=== PATIENT | female | born 1955 | race Caucasian/White ===

== ENCOUNTER 2017-01-29 18:33 | Emergency (ER) | payer OTHER ==
[2017-01-29 18:41] VITALS: BP 125/83; PULSE 81; RESP 20; TEMP 98
--- NOTE | 2017-01-29 19:39 | CT ---
EXAMINATION TYPE: CT brain alconine wo con DATE OF EXAM: 01/29/2017 COMPARISON: Head CT 11/06/2011 HISTORY: Fall with posterior head injury. Neck pain CT DLP: 1598.40 mGycm Automated exposure control for dose reduction was used. TECHNIQUE: CT scan of the head and cervical spine are performed without contrast. FINDINGS: Ventricles and sulci appear normal. There is no mass effect nor midline shift. There is n o sign of intracranial hemorrhage. The calvarium is intact. There is minimal mucosal thickening in th e ethmoid sinus. The cervical vertebra have fairly normal spacing and alignment. Posterior elements are intact. Facet joints are intact. The skull base is intact. IMPRESSION: Negative CT scan of the brain. Negative CT scan of the cervical spine.
--- NOTE | 2017-01-29 19:41 | ED ---
General Adult HPI - General Chief complaint: Fall Stated complaint: head injury, back pain, tailbone Time Seen by Provider: 01/29/17 18:47 Source: patient, RN notes reviewed Mode of arrival: ambulatory Limitations: no limitations - History of Present Illness Initial comments: 62-year-old female presents to the emergency department with a chief complaint of fall. Patient was at work and she stepped backwards and lost her balance. Patient states she fell backwards on her back and hit her head on the wheelchair. Patient states she did not pass out. Patient states that she just has some tailbone pain. Patient states she does not have a headache she denies any neck discomfort. Patient states she hasn't had any other symptoms at this time. She denies any nausea. Patient states that she was concerned due to her pain and fall so she thought that she should be evaluated. Patient denies any recent fever, chills, shortness of breath, chest pain, abdominal pain, nausea vomiting, numbness or tingling, dysuria or hematuria, constipation or diarrhea, headaches or visual changes, or any other current symptoms. - Related Data Home Medications Medication Instructions Recorded Confirmed Ergocalciferol [Vitamin D2 50,000 unit PO Q7D 11/12/14 03/17/16 (DRISDOL)] Levothyroxine Sodium [Synthroid] 112 mcg PO DAILY 11/12/14 03/17/16 busPIRone HCl [Buspar] 10 mg PO DAILY 11/12/14 03/17/16 Zolpidem [Ambien] 5 mg PO HS PRN 12/11/14 03/17/16 ALPRAZolam [Xanax] 0.25 mg PO BID PRN 03/13/16 03/17/16 Aspirin 81 mg PO DAILY 03/13/16 03/17/16 Ferrous Sulfate [Iron (65 MG 325 mg PO DAILY 03/13/16 03/17/16 Elemental)] Metoprolol Tartrate 25 mg PO HS 03/13/16 03/17/16 Metoprolol Tartrate [Lopressor] 50 mg PO DAILY 03/13/16 03/17/16 Previous Rx's Medication Instructions Recorded Atorvastatin [Lipitor] 80 mg PO HS #30 tab 11/15/14 Clopidogrel [Plavix] 75 mg PO DAILY #30 tab 11/15/14 Losartan [Cozaar] 50 mg PO DAILY #30 tab 12/20/14 Aspirin 325 mg PO DAILY 30 Days 03/18/16 Mag Hydrox/Al Hydrox/Simeth 30 ml PO Q4HR PRN #0 cup 03/18/16 [Maalox] Nitroglycerin Sl Tabs [Nitrostat] 0.4 mg SUBLINGUAL Q5M PRN #25 tab 03/18/16 Allergies Allergy/AdvReac Type Severity Reaction Status Date / Time No Known Allergies Allergy Verified 01/29/17 18:40 Review of Systems ROS Statement: Those systems with pertinent positive or pertinent negative responses have been documented in the HPI. ROS Other: All systems not noted in ROS Statement are negative. Past Medical History Past Medical History: Chest Pain / Angina, Fibromyalgia, GERD/Reflux, Hyperlipidemia, Hypertension, Myocardial Infarction (LA), Rheumatoid Arthritis ( RA), Thyroid Disorder Additional Past Medical History / Comment(s): 12/19/14 Pt admitted to floor s/p stenting of LAD and diagnal. 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 guillian barre syndrome, hypothryroidism, gastric ulcer Last Myocardial Infarction Date:: 11/12/14 History of Any Multi-Drug Resistant Organisms: MRSA Date of last positivie culture/infection: 2008 or 2009 MDRO Source:: R ankle wound Past Surgical History: Breast Surgery, Cholecystectomy, Heart Catheterization With Stent, Hysterectomy, Orthopedic Surgery Additional Past Surgical History / Comment(s): 12/19/14 Stenting of LAD and diagonal. 11/12/14 PTCA with stenting RCA and CX, bilateral hips broken and set to treat congenital hip dysplasia bilaterally, sinus surg, R medial ankle wound debridement, L breast bx, colonoscopy, D & C. Past Anesthesia/Blood Transfusion Reactions: No Reported Reaction Additional Past Anesthesia/Blood Transfusion Reaction / Comment(s): Pt has never recieved blood. Date of Last Stent Placement:: 11/12/14 Past Psychological History: Anxiety, Depression Smoking Status: Light tobacco smoker Past Alcohol Use History: None Reported Past Drug Use History: None Reported - Past Family History Brother(s) Additional Family Medical History / Comment(s): CMP, HAS AICD. Father Family Medical History: Cancer Additional Family Medical History / Comment(s): Father of colon cancer at age 77 years Mother Family Medical History: Coronary Artery Disease (CAD) Additional Family Medical History / Comment(s): Mother is living. General Exam - General Exam Comments Initial Comments: General: The patient is awake and alert, in no distress, and does not appear acutely ill. Eye: Pupils are equal, round and reactive to light, extra-ocular movements are intact; there is normal conjunctiva bilaterally. No signs of icterus. Ears, nose, mouth and throat: There are moist mucous membranes and no oral lesions. Neck: The neck is supple, there is no tenderness. Cardiovascular: There is a regular rate and rhythm. No murmur, rub or gallop is appreciated. Respiratory: Lungs are clear to auscultation, respirations are non-labored, breath sounds are equal. No wheezes, stridor, rales, or rhonchi. Back: There is no tenderness to palpation in the midline. Tenderness over the taxi to palpation. There is no obvious deformity. No rashes noted. Musculoskeletal: Normal ROM, no tenderness, There is no pedal edema. There is no calf tenderness or swelling. Sensation intact. Pulses equal bilaterally 2+. Neurological: CN II-XII intact, There are no obvious motor or sensory deficits. Coordination appears grossly intact. Speech is normal. Skin: Skin is warm and dry and no rashes or lesions are noted. Psychiatric: Cooperative, appropriate mood & affect, normal judgment. Limitations: no limitations Course Vital Signs 01/29/17 18:37 Temperature 98.0 F Pulse Rate 81 Respiratory 20 Rate Blood Pressure 125/83 O2 Sat by Pulse 96 Oximetry Medical Decision Making - Medical Decision Making 62-year-old female presents to the emergency department with chief complaint of fall. At this time patient's images are reviewed and negative. This time we discussed patient's results. We discussed follow-up we discussed return parameters all the questions. She stated that she understood and she is given the plan. At this time patient will be discharged home. - Radiology Data Radiology results: report reviewed, image reviewed Disposition Clinical Impression: Fall, Minor head injury without loss of consciousness, Coccyx contusion Disposition: HOME SELF-CARE Condition: Stable Instructions: Contusion in Adults (ED), Head Injury (ED) Additional Instructions: Please use medication as discussed. Please follow up with family doctor if symptoms have not improved over the next two days. Please return to the emergency room if your symptoms increase or worsen or for any other concerns. Referrals: Sherron Osman DO [Primary Care Provider] - 1-2 days Time of Disposition: 19:50
--- NOTE | 2017-01-29 19:44 | XR ---
EXAMINATION TYPE: XR lumbar spine 2 or 3V DATE OF EXAM: 01/29/2017 COMPARISON: NONE HISTORY: Fell backwards TECHNIQUE: 3 views FINDINGS: There is a 5 mm calcification in the lower pole right kidney. Vertebra have normal alignmen t. Posterior elements are intact. I see no compression fracture. There is mild spurring of the endpla kat. Sacroiliac joints appear intact. IMPRESSION: Negative lumbar spine exam. Mild spurring. Right renal calculus. No fracture.
--- NOTE | 2017-01-29 19:46 | XR ---
EXAMINATION TYPE: XR sacrum coccyx DATE OF EXAM: 01/29/2017 COMPARISON: NONE HISTORY: Back pain TECHNIQUE: 3 views FINDINGS: Segments have normal alignment. I see no displaced fracture. Sacroiliac joints appear intac t. IMPRESSION: Negative sacrum and coccyx exam.
== END 2017-01-29 20:00 | disposition home or self-care (01) ==
LOC: EC 18:33
DX: S30.0XXA Contusion of lower back and pelvis, initial encounter (principal); S09.90XA Unspecified injury of head, initial encounter; I10 Essential (primary) hypertension; E03.9 Hypothyroidism, unspecified; F41.9 Anxiety disorder, unspecified; M06.9 Rheumatoid arthritis, unspecified; I25.2 Old myocardial infarction; F17.200 Nicotine dependence, unspecified, uncomplicated; Z79.82 Long term (current) use of aspirin; Z79.899 Other long term (current) drug therapy; Z86.79 Personal history of other diseases of the circulatory system; W01.190A Fall on same level from slipping, tripping and stumbling with subsequent striking against furniture, initial encounter; Y92.69 Other specified industrial and construction area as the place of occurrence of the external cause; Y93.89 Activity, other specified; Y99.0 Civilian activity done for income or pay
CPT/HCPCS: 70450; 72100; 72125; 72220; 99284

== ENCOUNTER → 2017-02-02 | Outpatient (CLI) | payer OTHER ==
--- NOTE | 2017-02-02 16:35 | XR ---
EXAMINATION TYPE: XR thoracic spine complete DATE OF EXAM: 02/02/2017 COMPARISON: NONE HISTORY: Contusion lower back TECHNIQUE: Three-view thoracic spine FINDINGS: There are 12 thoracic type vertebral bodies. The pedicles are intact. Disc heights are pres erved. Vertebral body heights are preserved. Alignment is normal. IMPRESSION: 1. Normal three-view thoracic spine
--- NOTE | 2017-02-02 16:52 | CT ---
EXAMINATION TYPE: CT sacrum wo con DATE OF EXAM: 02/02/2017 COMPARISON: NONE HISTORY: Contusion lower back and pelvis CT DLP: 852.2 mGycm Automated exposure control for dose reduction was used. FINDINGS: Within the subcutaneous tissues greater on the right there is increased density. This can be compatib le with contusion from injury. Sacrum appears intact. No fractures are evident. Sacroiliac joint degenerative changes are present. S ymphysis visualized appears within normal limits. Additional osseous structures visualized are normal. Note is made of diverticular changes within the sigmoid colon. The appendix is visualized is normal. IMPRESSION: 1. NORMAL SACRUM. 2. SUBCUTANEOUS ECCHYMOSIS ALONG THE RIGHT BUTTOCKS
== END | disposition home or self-care (01) ==
LOC: RADCTMAIN 16:13
PROVIDERS: ATTEND Emergency Medicine
DX: S30.0XXA Contusion of lower back and pelvis, initial encounter (principal)
CPT/HCPCS: 72072; 72192

== ENCOUNTER → 2017-02-10 | Outpatient (CLI) | payer OTHER ==
--- NOTE | 2017-02-11 10:42 | MM ---
Reason for exam: screening (asymptomatic). Last mammogram was performed 1 year and 5 months ago. History: Patient is postmenopausal and is nulliparous. Benign stereotactic core biopsy of the left breast, August 18, 2001. Physical Findings: A clinical breast exam by your physician is recommended on an annual basis and results should be correlated with mammographic findings. MG Screening Mammo w CAD Bilateral CC and MLO view(s) were taken. Prior study comparison: September 14, 2015, bilateral MG 3d screening mammo w/cad. August 28, 2010, bilateral digital screening mammo w/CAD. There are scattered fibroglandular densities. Previous mammotome biopsy in the left breast. No significant changes when compared with prior studies. ASSESSMENT: Benign, BI-RAD 2 RECOMMENDATION: Routine screening mammogram of both breasts in 1 year.
== END | disposition home or self-care (01) ==
LOC: RADMAMWWP 16:24
PROVIDERS: ATTEND Family Medicine
DX: Z12.31 Encounter for screening mammogram for malignant neoplasm of breast (principal)

== ENCOUNTER → 2018-03-28 | Outpatient (CLI) | payer BC ==
--- NOTE | 2018-03-28 19:09 | BD ---
EXAMINATION TYPE: Axial Bone Density DATE OF EXAM: 03/28/2018 COMPARISON: NONE CLINICAL HISTORY: 63-year-old female postmenopausal screening Height: 62 Weight: 192.8 FRAX RISK QUESTIONS: Alcohol (3 or more units per day): no Family History (Parent hip fracture): yes Glucocorticoids (More than 3mos): no (Ex: prednisone, prednisolone, methylprednisolone, dexamethasone, and hydrocortisone). History of Fracture in Adulthood: no Secondary Osteoporosis: 1. Type 1 Diabetes: no 2. Hyperthyroidism: no 3. Menopause before 45: hysterectomy age 36 4. Malnutrition: no 5. Chronic liver disease: no Rheumatoid Arthritis: yes Current Tobacco Use: no RISK FACTORS HISTORY OF: Surgery to Spine/Hip(right/left)/Wrist (right/left): bilateral hips 1982 Family History of Osteoporosis: yes Active: yes Diet low in dairy products/other sources of calcium: yes Postmenopausal woman: hysterectomy age 36 Lost more than 2 inches in height since high school: no MEDICATIONS: arthritis meds, gabapentin, flexeril Thyroid Medications: thyroid How Lon years Additional History: EXAM MEASUREMENTS: Bone mineral densitometry was performed using the [employer] System. Bone mineral density as measured about the Lumbar spine is: ----- L1-L4(G/cm2): 0.970 T Score Values are as follows: ----- L2: -1.4 ----- L3: -1.3 ----- L4: -2.3 ----- L1-L4: -1.8 Bone mineral density has: increased 12.2 % since study of: 05.08.2005 Bone mineral density about the L Wrist (g/cm2): 0.596 T Score values are as follows: -----Dist. R+U: -0.3 -----Prox. R+U: -1.4 -----Radius total: -1.3 Bone mineral density : baseline IMPRESSION: Osteopenia (T Score between -2.5 and -1). There is slightly increased risk of fracture and the patient may be considered for treatment. Re-Screen 2-5 years. NOTE: T-SCORE=SD OF THE YOUNG ADULT MEAN.
--- NOTE | 2018-03-29 11:21 | MM ---
Reason for exam: screening (asymptomatic). Last mammogram was performed 1 year and 2 months ago. History: Patient is postmenopausal and is nulliparous. Benign stereotactic core biopsy of the left breast, August 18, 2001. Physical Findings: A clinical breast exam by your physician is recommended on an annual basis and results should be correlated with mammographic findings. MG 3D Screening Mammo W/Cad Bilateral CC and MLO view(s) were taken. Prior study comparison: February 10, 2017, bilateral MG screening mammo w CAD. September 14, 2015, bilateral MG 3d screening mammo w/cad. There are scattered fibroglandular densities. No significant changes when compared with prior studies. ASSESSMENT: Benign, BI-RAD 2 RECOMMENDATION: Routine screening mammogram of both breasts in 1 year.
== END | disposition home or self-care (01) ==
LOC: RADMAMWWP 14:22
PROVIDERS: ATTEND Family Medicine
DX: Z12.31 Encounter for screening mammogram for malignant neoplasm of breast (principal); M85.80 Other specified disorders of bone density and structure, unspecified site; Z78.0 Asymptomatic menopausal state
CPT/HCPCS: 77063; 77067; 77080

== ENCOUNTER → 2018-04-07 | Outpatient (CLI) | payer BC ==
[2018-04-07 09:08] LABS: HCT 38.5 % (34.0-46.0); HGB 12.8 gm/dL (11.4-16.0); MCH 34.4 pg (25.0-35.0); MCHC 33.3 g/dL (31.0-37.0); MCV 103.2 fL (80.0-100.0); Macrocytosis Slight; Mean Platelet Volume 6.5; Platelet Count 364 k/uL (150-450); RBC 3.73 m/uL (3.80-5.40); RDW 14.1 % (11.5-15.5); WBC 7.5 k/uL (3.8-10.6)
[2018-04-07 15:47] LABS: Anion Gap 9.5 mmol/L (4.00-12.00); Calcium 9.3 mg/dL (8.7-10.3); Carbon Dioxide 23.5 mmol/L (21.6-31.8); Potassium 4.3 mmol/L (3.5-5.5)
== END ==
LOC: LABWHC1 08:35
PROVIDERS: ATTEND Internal Medicine Interventional Cardiology
DX: I10 Essential (primary) hypertension (principal); I25.10 Atherosclerotic heart disease of native coronary artery without angina pectoris
CPT/HCPCS: 36415; 80048; 85027

== ENCOUNTER → 2019-03-15 | Outpatient (CLI) | payer BC ==
--- NOTE | 2019-03-16 00:14 | MR ---
EXAMINATION TYPE: MR wrist LT wo con DATE OF EXAM: 03/15/2019 COMPARISON: None HISTORY: Left wrist pain, effusion Standard multiplanar, multisequence MRI departmental protocol Multiplanar, multisequence images of the left wrist were acquired. FINDINGS: On the T2 images there is multiple areas of abnormal increased signal involving the scaphoi d bone, capitate hamate distal radius trapezoid. There are small areas of increased signal in the tra pezium and the triquetrum. There is some cystic fluid collection around the ulnar styloid process. Th ere is wrist joint effusion. There is significant scaphoid deformity consistent with an old fracture. There is narrowing of the radiocarpal joint space. I see no acute fracture. Proximal metacarpals nazia ear intact. There are small areas of degenerative cyst formation in the base of the second metacarpal . There is soft tissue edema around the flexor tendons and in the subcutaneous tissues over the anter ior carpus. IMPRESSION: Wrist joint effusion. Abnormal signal in numerous bones as described above consistent with edema. The re is evidence of old fracture of the scaphoid with significant deformity. There is no significant sp ur formation and I would also consider the presence of inflammatory arthritis. Mild anterior soft tis filipe edema.
== END | disposition home or self-care (01) ==
LOC: RADMRIMAIN 18:39
PROVIDERS: ATTEND Internal Medicine Rheumatology
DX: M25.432 Effusion, left wrist (principal); S62.002S Unspecified fracture of navicular [scaphoid] bone of left wrist, sequela; M21.832 Other specified acquired deformities of left forearm; M79.89 Other specified soft tissue disorders

== ENCOUNTER → 2023-04-05 | Day surgery (SDC) | payer OTHER ==
--- NOTE | 2023-04-08 08:00 | MM ---
Risk Values: Kay 5 year model risk: 2.4%. NCI Lifetime model risk: 8.6%. Management: Screening Mammogram of both breasts in 1 year. Electronically signed and approved by: Cr Avila DO
== END ==
LOC: RADMAMWWP 07:16
PROVIDERS: ATTEND Family Medicine
DX: Z53.8 Procedure and treatment not carried out for other reasons (principal)

== ENCOUNTER 2023-12-27 12:31 | Emergency (ER) | payer BC, MEDICARE ==
--- NOTE | 2023-12-27 12:55 | ED ---
General Adult HPI - General Chief complaint: Fall Stated complaint: Fall Time Seen by Provider: 12/27/23 12:36 Source: patient, EMS, RN notes reviewed Mode of arrival: EMS Limitations: no limitations - History of Present Illness Initial comments: Patient is a 68-year-old female present to the emergency department for head injury. Patient slipped and fell around 2 AM. Patient struck her head on the counter and believes she may have lost consciousness for just a second. Patient however felt generally weak and was not unable to get up. Patient was lying on the ground for up to 10 hours. Patient has chronic weakness secondary to lupus. Patient feels this is similar to that and no worse. No other injuries other than striking her head. - Related Data Home Medications Medication Instructions Recorded Confirmed Atorvastatin Calcium [Lipitor] 80 mg PO HS 01/29/17 12/27/23 Clopidogrel [Plavix] 75 mg PO DAILY 01/29/17 12/27/23 Cyclobenzaprine [Flexeril] 10 mg PO HS 01/29/17 12/27/23 Furosemide [Lasix] 20 mg PO DAILY 01/29/17 12/27/23 Gabapentin [Neurontin] 300 mg PO HS 01/29/17 12/27/23 HYDROcodone/APAP 7.5-325MG [[place] 1 tab PO HS 01/29/17 12/27/23 7.5-325] Metoprolol Tartrate [Lopressor] 50 mg PO HS 01/29/17 12/27/23 Ibuprofen [Motrin] 800 mg PO Q12H PRN 12/27/23 12/27/23 Irbesartan 75 mg PO DAILY 12/27/23 12/27/23 Levothyroxine Sodium [Synthroid] 150 mcg PO DAILY 12/27/23 12/27/23 Metoprolol Tartrate [Lopressor] 100 mg PO DAILY 12/27/23 12/27/23 Omeprazole 20 mg PO BID 12/27/23 12/27/23 Allergies Allergy/AdvReac Type Severity Reaction Status Date / Time No Known Allergies Allergy Verified 12/27/23 13:53 Review of Systems ROS Statement: Those systems with pertinent positive or pertinent negative responses have been documented in the HPI. ROS Other: All systems not noted in ROS Statement are negative. Constitutional: Denies: fever Eyes: Denies: eye pain ENT: Denies: ear pain Respiratory: Denies: cough, dyspnea Cardiovascular: Denies: chest pain Gastrointestinal: Denies: abdominal pain Genitourinary: Denies: dysuria Musculoskeletal: Denies: back pain Skin: Denies: rash Neurological: Reports: as per HPI Past Medical History Past Medical History: Chest Pain / Angina, Fibromyalgia, GERD/Reflux, Hyperlipidemia, Hypertension, Myocardial Infarction (ND), Rheumatoid Arthritis (RA), Thyroid Disorder Additional Past Medical History / Comment(s): 12/19/14 Pt admitted to floor s/p stenting of LAD and diagnal. 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 guillian barre syndrome, hypothryroidism, gastric ulcer Last Myocardial Infarction Date:: 11/12/14 History of Any Multi-Drug Resistant Organisms: MRSA Date of last positivie culture/infection: 2008 or 2009 MDRO Source:: R ankle wound Past Surgical History: Breast Surgery, Cholecystectomy, Heart Catheterization With Stent, Hysterectomy, Orthopedic Surgery Additional Past Surgical History / Comment(s): 12/19/14 Stenting of LAD and diagonal. 11/12/14 PTCA with stenting RCA and CX, bilateral hips broken and set to treat congenital hip dysplasia bilaterally, sinus surg, R medial ankle wound debridement, L breast bx, colonoscopy, D & C. Past Anesthesia/Blood Transfusion Reactions: No Reported Reaction Additional Past Anesthesia/Blood Transfusion Reaction / Comment(s): Pt has never recieved blood. Date of Last Stent Placement:: 11/12/14 Past Psychological History: Anxiety, Depression Smoking Status: Current some day smoker Past Alcohol Use History: None Reported Past Drug Use History: None Reported - Past Family History Brother(s) Additional Family Medical History / Comment(s): CMP, HAS AICD. Father Family Medical History: Cancer Additional Family Medical History / Comment(s): Father of colon cancer at age 77 years Mother Family Medical History: Coronary Artery Disease (CAD) Additional Family Medical History / Comment(s): Mother is living. General Exam Limitations: no limitations General appearance: alert, in no apparent distress Head exam: Present: atraumatic Eye exam: Present: normal appearance, PERRL, EOMI ENT exam: Present: normal oropharynx Neck exam: Present: normal inspection, full ROM. Absent: tenderness, meningismus Respiratory exam: Present: normal lung sounds bilaterally Cardiovascular Exam: Present: regular rate, normal rhythm GI/Abdominal exam: Present: soft. Absent: tenderness Extremities exam: Present: normal inspection, full ROM. Absent: tenderness Back exam: Absent: tenderness, vertebral tenderness Neurological exam: Present: alert, oriented X3, CN II-XII intact Expanded Neurological exam: Present: protecting the airway Patient oriented to: Present: person, place, time Speech: Present: fluid speech Cranial nerves: EOM's Intact: Normal Motor strength exam: RUE: 5, LUE: 5, RLE: 4, LLE: 4 Eye Response: (4) open spontaneously Motor Response: (6) obeys commands Verbal Response: (5) oriented Psychiatric exam: Present: normal affect, normal mood Skin exam: Present: abrasion Course Vital Signs 12/27/23 12/27/23 12/27/23 12:42 13:30 14:00 Temperature 97.1 F L Pulse Rate 75 77 76 Respiratory 18 20 18 Rate Blood Pressure 145/99 138/94 142/100 O2 Sat by Pulse 98 98 97 Oximetry EKG Findings - EKG Results: EKG: interpreted by ERMD (Small inferior and lateral Q waves.), sinus rhythm, normal axis, normal ST/T Medical Decision Making - Medical Decision Making Was pt. sent in by a medical professional or institution (LILIAN Corona, CONTROL CLERK SUBASSEMBLY, urgent ca re, hospital, or [facility]...) When possible be specific @ -No Did you speak to anyone other than the patient for history (EMS, parent, family, police, friend...)? What history was obtained from this source @ -EMS provides history of transportation Did you review nursing and triage notes (agree or disagree)? Why? @ -I reviewed and agree with nursing and triage notes Were old charts reviewed (outside hosp., previous admission, EMS record, old EKG, old radiological studies, urgent care reports/EKG's, [facility] records)? Report findings @ -No old charts were reviewed Differential Diagnosis (chest pain, altered mental status, abdominal pain women, abdominal pain men, vaginal bleeding, weakness, fever, dyspnea, syncope, headache, dizziness, GI bleed, back pain, seizure, CVA, palpatations, mental health, musculoskeletal)? @ -Differential Weakness: Hypoglycemia, shock, sepsis, hyponatremia, anemia, infection, ND, ETOH, adverse medicine reaction, overdose, stroke, this is not meant to be an all-inclusive list. EKG interpreted by me (3pts min.). @ -As above X-rays interpreted by me (1pt min.). @ -Chest x-ray shows no acute process CT interpreted by me (1pt min.). @ -CT scan of the brain does not reveal any acute process U/S interpreted by me (1pt. min.). @ -None done What testing was considered but not performed or refused? (CT, X-rays, U/S, labs)? Why? @ -None What meds were considered but not given or refused? Why? @ -None Did you discuss the management of the patient with other professionals (professionals i.e. , PA, CONTROL CLERK SUBASSEMBLY, lab, RT, psych nurse, long term care social worker, glazing department supervisor, teacher, fire information officer, leather case finisher)? Give summary @ -No Was smoking cessation discussed for >3mins.? @ -No Was critical care preformed (if so, how long)? @ -No Were there social determinants of health that impacted care today? How? (Homelessness, low income, unemployed, alcoholism, drug addiction, transportation, low edu. Level, literacy, decrease access to med. care, fci, rehab)? @ -No Was there de-escalation of care discussed even if they declined (Discuss DNR or withdrawal of care, Hospice)? DNR status @ -No What co-morbidities impacted this encounter? (DM, HTN, Smoking, COPD, CAD, Cancer, CVA, ARF, Chemo, Hep., AIDS, mental health diagnosis, sleep apnea, morbid obesity)? @ -None Was patient admitted / discharged? Hospital course, mention meds given and route, prescriptions, significant lab abnormalities, going to OR and other pertinent info. @ -Patient presents with chronic weakness, patient denies any new weakness. Patient does have mild elevation of CPK as well as lactic acid. Patient receiving fluid bolus. Patient will be discharged and advised close follow-up for repeat testing, patient does demonstrate understanding and agrees to this. Patient will be discharged. Nursing staff to ambulate patient prior to discharge. Undiagnosed new problem with uncertain prognosis? @ -No Drug Therapy requiring intensive monitoring for toxicity (Heparin, Nitro, Insulin, Cardizem)? @ -No Were any procedures done? @ -No Diagnosis/symptom? @ -Head injury, fall, hypokalemia Acute, or Chronic, or Acute on Chronic? @ -Acute, acute, acute Uncomplicated (without systemic symptoms) or Complicated (systemic symptoms)? @ -Default Side effects of treatment? @ -No Exacerbation, Progression, or Severe Exacerbation? @ -No Poses a threat to life or bodily function? How? (Chest pain, USA, ND, pneumonia, PE, COPD, DKA, ARF, appy, cholecystitis, CVA, Diverticulitis, Homicidal, Suicidal, threat to staff... and all critical care pts) @ -No - Lab Data Result diagrams: 12/27/23 13:09 12/27/23 13:09 Lab Results 12/27/23 12/27/23 12/27/23 Range/Units 13:09 13:09 13:09 WBC 7.4 (3.8-10.6) k/uL RBC 3.56 L (3.80-5.40) m/uL Hgb 12.3 (11.4-16.0) gm/dL Hct 36.6 (34.0-46.0) % MCV 102.9 H (80.0-100.0) fL MCH 34.5 (25.0-35.0) pg MCHC 33.5 (31.0-37.0) g/dL RDW 14.9 (11.5-15.5) % Plt Count 277 (150-450) k/uL MPV 7.3 Neutrophils % 73 % Lymphocytes % 14 % Monocytes % 6 % Eosinophils % 5 % Basophils % 1 % Neutrophils # 5.4 (1.3-7.7) k/uL Lymphocytes # 1.0 (1.0-4.8) k/uL Monocytes # 0.4 (0-1.0) k/uL Eosinophils # 0.4 (0-0.7) k/uL Basophils # 0.1 (0-0.2) k/uL Macrocytosis Slight PT 9.6 L (10.0-12.5) sec INR 0.8 (<1.2) APTT 22.2 (22.0-30.0) sec Sodium 137 (137-145) mmol/L Potassium 3.1 L (3.5-5.1) mmol/L Chloride 104 (98-107) mmol/L Carbon Dioxide 26 (22-30) mmol/L Anion Gap 7 mmol/L BUN 9 (7-17) mg/dL Creatinine 0.54 (0.52-1.04) mg/dL Est GFR (CKD-EPI)AfAm >90 (>60 ml/min/1.73 sqM) Est GFR (CKD-EPI)NonAf >90 (>60 ml/min/1.73 sqM) Glucose 91 (74-99) mg/dL Plasma Lactic Acid Kvgn (0.7-2.0) mmol/L Calcium 9.3 (8.4-10.2) mg/dL Magnesium 1.9 (1.6-2.3) mg/dL Total Bilirubin 0.8 (0.2-1.3) mg/dL AST 183 H (14-36) U/L ALT 32 (4-34) U/L Alkaline Phosphatase 73 (38-126) U/L Creatine Kinase 889 H (30-135) U/L Total Protein 6.2 L (6.3-8.2) g/dL Albumin 3.8 (3.5-5.0) g/dL 12/27/23 Range/Units 13:09 WBC (3.8-10.6) k/uL RBC (3.80-5.40) m/uL Hgb (11.4-16.0) gm/dL Hct (34.0-46.0) % MCV (80.0-100.0) fL MCH (25.0-35.0) pg MCHC (31.0-37.0) g/dL RDW (11.5-15.5) % Plt Count (150-450) k/uL MPV Neutrophils % % Lymphocytes % % Monocytes % % Eosinophils % % Basophils % % Neutrophils # (1.3-7.7) k/uL Lymphocytes # (1.0-4.8) k/uL Monocytes # (0-1.0) k/uL Eosinophils # (0-0.7) k/uL Basophils # (0-0.2) k/uL Macrocytosis PT (10.0-12.5) sec INR (<1.2) APTT (22.0-30.0) sec Sodium (137-145) mmol/L Potassium (3.5-5.1) mmol/L Chloride (98-107) mmol/L Carbon Dioxide (22-30) mmol/L Anion Gap mmol/L BUN (7-17) mg/dL Creatinine (0.52-1.04) mg/dL Est GFR (CKD-EPI)AfAm (>60 ml/min/1.73 sqM) Est GFR (CKD-EPI)NonAf (>60 ml/min/1.73 sqM) Glucose (74-99) mg/dL Plasma Lactic Acid Kvng 3.7 H* (0.7-2.0) mmol/L Calcium (8.4-10.2) mg/dL Magnesium (1.6-2.3) mg/dL Total Bilirubin (0.2-1.3) mg/dL AST (14-36) U/L ALT (4-34) U/L Alkaline Phosphatase (38-126) U/L Creatine Kinase (30-135) U/L Total Protein (6.3-8.2) g/dL Albumin (3.5-5.0) g/dL Disposition Clinical Impression: Fall Disposition: HOME SELF-CARE Condition: Stable Instructions (If sedation given, give patient instructions): Fall Prevention (ED), Head Injury (ED) Additional Instructions: Please do follow-up with your primary care physician in the next 1 or 2 days for recheck. Please have your primary care physician recheck potassium, kidney function, CPK and lactic acid. Return for weakness, difficulty walking, confusion, worsening symptoms or any other concerns Is patient prescribed a controlled substance at d/c from ED?: No Referrals: Sherron Osman DO [Primary Care Provider] - 1-2 days Time of Disposition: 14:30
--- NOTE | 2023-12-27 13:32 | CT ---
EXAMINATION TYPE: CT brain wo con DATE OF EXAM: 12/27/2023 COMPARISON: 01/29/2017 HISTORY: weakness CT DLP: 1138.[address] of the brain was performed. The ventricles, basal cisterns and sulci overlying the cerebral convexities demonstrate mild enlargem ent. There is no evidence for intracranial hemorrhage or sulcal effacement. There is decreased attenuation about the periventricular white matter and deep white matter of both c erebral hemispheres, compatible with chronic small vessel ischemia. Differential diagnosis does inclu de demyelination. No mass effects are seen.No midline shift. Osseous calvarium is intact. If symptoms persist consider MRI. IMPRESSION: 1. Age related atrophic and chronic small vessel ischemic change without acute intracranial process s een at this time.
[2023-12-27 13:50] LABS: INR 0.8 (<1.2); Partial Thromboplastin Time 22.2 sec (22.0-30.0); Prothrombin Time 9.6 sec (10.0-12.5)
--- NOTE | 2023-12-27 13:51 | XR ---
EXAMINATION TYPE: XR chest 2V DATE OF EXAM: 12/27/2023 COMPARISON: None HISTORY: 68-year-old female with weakness and fall TECHNIQUE: AP and lateral views FINDINGS: Heart mildly enlarged. Normal variant azygos fissure. Aorta and pulmonary vasculature within normal l imits. No consolidation or pleural effusion. IMPRESSION: Mild cardiomegaly and COPD. No acute process seen.
[2023-12-27 13:53] LABS: Basophils # (A) 0.1 k/uL (0-0.2); Basophils % (A) 1 %; Eosinophils # (A) 0.4 k/uL (0-0.7); Eosinophils % (A) 5 %; HCT 36.6 % (34.0-46.0); HGB 12.3 gm/dL (11.4-16.0); Lymphocytes % (A) 14 %; MCH 34.5 pg (25.0-35.0); MCHC 33.5 g/dL (31.0-37.0); MCV 102.9 fL (80.0-100.0); Macrocytosis Slight; Mean Platelet Volume 7.3; Monocytes # (A) 0.4 k/uL (0-1.0); Monocytes % (A) 6 %; Neutrophils # (A) 5.4 k/uL (1.3-7.7); Neutrophils % (A) 73 %; Platelet Count 277 k/uL (150-450); RBC 3.56 m/uL (3.80-5.40); RDW 14.9 % (11.5-15.5); WBC 7.4 k/uL (3.8-10.6)
[2023-12-27 13:57] LABS: ALT 32 U/L (4-34); AST 183 U/L (14-36); African American GFR (CKD) >90 (>60 ml/min/1.73 sqM); Albumin 3.8 g/dL (3.5-5.0); Alkaline Phosphatase 73 U/L (38-126); Anion Gap 7 mmol/L; Blood Urea Nitrogen 9 mg/dL (7-17); Calcium 9.3 mg/dL (8.4-10.2); Carbon Dioxide 26 mmol/L (22-30); Chloride 104 mmol/L (98-107); Creatine Kinase 889 U/L (30-135); Glucose 91 mg/dL (74-99); Magnesium 1.9 mg/dL (1.6-2.3); Non-African American GFR(CKD) >90 (>60 ml/min/1.73 sqM); Potassium 3.1 mmol/L (3.5-5.1); Sodium 137 mmol/L (137-145); Total Bilirubin 0.8 mg/dL (0.2-1.3); Total Protein 6.2 g/dL (6.3-8.2)
[2023-12-27] MEDS: SODIUM CHLORIDE 0.9% 1,000 ML IV STA ×2 (14:06→14:40)
[2023-12-27] MEDS: DIPH,PERTUS(ACELL)TETVAC-LF 0.5 ML VIAL IM ONE (14:07)
[2023-12-27] MEDS: POTASSIUM CHLORIDE ER 20 MEQ TAB.ER PO STA (15:05)
[2023-12-27 15:22] VITALS: BP 149/78; PULSE 74; RESP 16; TEMP 98.2
== END 2023-12-27 15:22 | disposition home or self-care (01) ==
LOC: EC 12:31
DX: S09.90XA Unspecified injury of head, initial encounter (principal); F17.200 Nicotine dependence, unspecified, uncomplicated; Z23 Encounter for immunization; W01.198A Fall on same level from slipping, tripping and stumbling with subsequent striking against other object, initial encounter
CPT/HCPCS: 36415; 70450; 71046; 80053; 82550; 83605; 83735; 85025; 85610; 85730; 90471; 90715; 93005; 96360; 99285

== ENCOUNTER 2024-02-03 05:45 | Inpatient (IN) | payer BC, MEDICARE ==
[2024-02-03] MEDS ORDERED: ASPIRIN 81 MG ONE (19:20)
[2024-02-03] MEDS ORDERED: CLOPIDOGREL 75 MG TAB ONE (19:21)
[2024-02-03] MEDS ORDERED: SODIUM CHLORIDE 0.9% 1,000 ML BAG ONE (19:35)
[2024-02-03] MEDS ORDERED: CYCLOBENZAPRINE 5 MG TAB ONE (20:30)
[2024-02-03] MEDS ORDERED: GABAPENTIN 300 MG CAP ONE (20:30)
[2024-02-03] MEDS ORDERED: METOPROLOL TARTRATE 25 MG TAB ONE (20:30)
[2024-02-04] MEDS ORDERED: SODIUM CHLORIDE TAB 1 GM TAB ONE (00:01)
[2024-02-04] MEDS ORDERED: METOPROLOL TARTRATE 25 MG TAB ONE ×2 (07:49→19:34)
[2024-02-04] MEDS ORDERED: ASPIRIN 81 MG ONE (07:49)
[2024-02-04] MEDS ORDERED: CLOPIDOGREL 75 MG TAB ONE (07:49)
[2024-02-04] MEDS ORDERED: PANTOPRAZOLE 40 MG TABLET PO ONE (07:49)
[2024-02-04] MEDS ORDERED: GABAPENTIN 300 MG CAP ONE ×2 (07:49→19:33)
[2024-02-04] MEDS ORDERED: MAGNESIUM OXIDE 400 MG TAB ONE (07:49)
[2024-02-04] MEDS ORDERED: ACETAMINOPHEN TAB 325 MG TAB ONE (16:13)
[2024-02-04] MEDS ORDERED: CYCLOBENZAPRINE 5 MG TAB ONE (19:34)
[2024-02-05] MEDS ORDERED: CYCLOBENZAPRINE 5 MG TAB ONE (08:14)
[2024-02-05] MEDS ORDERED: ASPIRIN 81 MG ONE (08:14)
[2024-02-05] MEDS ORDERED: CLOPIDOGREL 75 MG TAB ONE (08:14)
[2024-02-05] MEDS ORDERED: GABAPENTIN 300 MG CAP ONE (08:14)
[2024-02-05] MEDS ORDERED: MAGNESIUM OXIDE 400 MG TAB ONE (08:14)
[2024-02-05] MEDS ORDERED: METOPROLOL TARTRATE 25 MG TAB ONE (08:14)
[2024-02-05] MEDS ORDERED: lisinopriL 5 MG TAB ONE (08:14)
[2024-02-05] MEDS ORDERED: PANTOPRAZOLE 40 MG TABLET PO ONE (08:14)
[2024-02-05] MEDS ORDERED: SODIUM CHLORIDE TAB 1 GM TAB ONE (11:00)
[2024-02-06] MEDS ORDERED: NALOXONE 0.4 MG/ML 1 ML VIAL IVP PRN
[2024-02-06] MEDS ORDERED: MECLIZINE 25 MG TAB PO PRN
[2024-02-06] MEDS: SODIUM CHLORIDE 0.9% 1,000 ML IV SCH (04:05)
[2024-02-06 04:58] LABS: Basophils % (A) 0 %; Eosinophils # (A) 0.3 k/uL (0-0.7); Eosinophils % (A) 4 %; HCT 31.7 % (34.0-46.0); Lymphocytes # (A) 1.1 k/uL (1.0-4.8); Lymphocytes % (A) 17 %; MCH 33.8 pg (25.0-35.0); MCHC 34.8 g/dL (31.0-37.0); Mean Platelet Volume 7.2; Monocytes # (A) 0.6 k/uL (0-1.0); Monocytes % (A) 9 %; Neutrophils # (A) 4.5 k/uL (1.3-7.7); Neutrophils % (A) 69 %; Platelet Count 232 k/uL (150-450); RBC 3.26 m/uL (3.80-5.40); RDW 14.7 % (11.5-15.5); WBC 6.5 k/uL (3.8-10.6)
[2024-02-06 05:01] LABS: MCV 97.3 fL (80.0-100.0)
[2024-02-06 05:28] LABS: ALT 20 U/L (4-34); AST 119 U/L (14-36); African American GFR (CKD) >90 (>60 ml/min/1.73 sqM); Albumin 3.1 g/dL (3.5-5.0); Alkaline Phosphatase 66 U/L (38-126); Anion Gap 5 mmol/L; Blood Urea Nitrogen 18 mg/dL (7-17); Calcium 8.9 mg/dL (8.4-10.2); Carbon Dioxide 29 mmol/L (22-30); Chloride 85 mmol/L (98-107); Glucose 87 mg/dL (74-99); Magnesium 1.8 mg/dL (1.6-2.3); Non-African American GFR(CKD) >90 (>60 ml/min/1.73 sqM); Total Bilirubin 0.9 mg/dL (0.2-1.3); Total Protein 5.4 g/dL (6.3-8.2)
[2024-02-06 05:36] LABS: Sodium 119 mmol/L (137-145)
[2024-02-06] MEDS: PANTOPRAZOLE 40 MG TABLET PO SCH (06:07)
[2024-02-06] MEDS: SODIUM CHLORIDE TAB 1 GM TAB PO SCH ×2 (06:08→13:03)
[2024-02-06] MEDS: lisinopriL 5 MG TAB PO SCH (08:02)
[2024-02-06] MEDS: METOPROLOL TARTRATE 25 MG TAB PO SCH (08:02)
[2024-02-06] MEDS: MAGNESIUM OXIDE 400 MG TAB PO SCH (08:02)
[2024-02-06] MEDS: CLOPIDOGREL 75 MG TAB PO SCH (08:02)
[2024-02-06] MEDS: ASPIRIN 81 MG PO SCH (08:02)
[2024-02-06] MEDS ORDERED: IBUPROFEN 800 MG TAB PO SCH (09:00)
[2024-02-06] MEDS ORDERED: FUROSEMIDE 20 MG TAB PO SCH (09:00)
--- NOTE | 2024-02-06 10:21 | P.PN ---
Subjective Please note Electronic system was done up to 02/05/2024 and everything was documented on paper chart. Patient is a pleasant 69 years old female with past medical history of multiple medical problems including hypertension, hyperlipidemia, fibromyalgia, coronary artery disease, rheumatoid arthritis and thyroid disease, Guillain-Ricardo syndrome. Presents because of hyponatremia and her sodium was as low as 115 upon admission, he has been evaluated and treated accordingly with slow correction of her sodium. Yesterday sodium went down from 118 down to 117. This morning sodium is 119 then 120. Patient today overall doing fine, she has no symptoms. Lying in bed most of the time and pleasant relaxed. No headache or confusion. Vital signs stable. Afebrile CBC is unremarkable except for hemoglobin of 11. Rest of BMP is unremarkable except of sodium 120. Liver enzymes not elevated. Objective - Vital Signs Vital signs: Vital Signs Temp 98.1 F 02/06/24 08:00 Pulse 89 02/06/24 08:00 Resp 18 02/06/24 08:00 BP 101/66 02/06/24 08:00 Pulse Ox 95 02/06/24 08:00 FiO2 Intake & Output 02/05/24 02/06/24 02/06/24 18:59 06:59 18:59 Output Total 0 Balance 0 Weight 62.73 kg 63.4 kg Output: Gastric Drainage 0 Urine 0 Stool 0 Emesis 0 Oral Regurgitation 0 Other 0 Other: Voiding Method External Catheter # Voids 0 # Bowel Movements 0 - Exam GENERAL: The patient is alert and oriented x3, not in any acute distress. Well developed, well nourished. HEENT: Pupils are round and equally reacting to light. EOMI. No scleral icterus. No conjunctival pallor. Normocephalic, atraumatic. No pharyngeal erythema. No thyromegaly. CARDIOVASCULAR: S1 and S2 present. No murmurs, rubs, or gallops. PULMONARY: Chest is clear to auscultation, no wheezing , no crackles. ABDOMEN: Soft, nontender, nondistended, normoactive bowel sounds. No palpable organomegaly. MUSCULOSKELETAL: No joint swelling or deformity. EXTREMITIES: No cyanosis, clubbing, or pedal edema. NEUROLOGICAL: Gross neurological examination did not reveal any focal deficits. SKIN: No rashes. no petechiae. - Labs CBC & Chem 7: 02/06/24 03:38 02/06/24 08:49 Labs: Abnormal Lab Results - Last 24 Hours (Table) 02/06/24 02/06/24 02/06/24 Range/Units 03:38 03:46 08:49 RBC 3.26 L (3.80-5.40) m/uL Hgb 11.0 L (11.4-16.0) gm/dL Hct 31.7 L (34.0-46.0) % Sodium 119 L* 120 L (137-145) mmol/L Chloride 85 L (98-107) mmol/L BUN 18 H (7-17) mg/dL AST 119 H (14-36) U/L Total Protein 5.4 L (6.3-8.2) g/dL Albumin 3.1 L (3.5-5.0) g/dL Assessment and Plan Assessment: Hyponatremia Folate 10 Cardiomyopathy with ejection fraction of 30% Coronary artery disease status post previous stents to LAD Hypertension Hyperlipidemia Hypothyroidism History of fibromyalgia History of rheumatoid arthritis History of Guillain-Ricardo syndrome Plan: Continue close monitoring of sodium Nephrology team consulted Manager Assessment evaluated the patient On sodium chloride tablets. Continue with metoprolol and lisinopril added Patient is on a fluid restriction Continue with aspirin and Plavix GI and DVT prophylaxis with Protonix and subcu heparin Further recommendation based on the clinical course of the patient
--- NOTE | 2024-02-06 10:59 | P.PN ---
Subjective Patient is seen in follow-up for hyponatremia. Sodium level slowly improving. 120 this morning. Oral intake fair. No active complaints. Vital signs are stable. General: No acute distress. HEENT: Head exam is unremarkable. LUNGS: No audible rhonchi or wheezes. HEART: Rate and Rhythm are regular. ABDOMEN: Nontender. EXTREMITITES: No edema. Objective - Vital Signs Vital signs: Vital Signs Temp 98.1 F 02/06/24 08:00 Pulse 89 02/06/24 08:00 Resp 18 02/06/24 08:00 BP 101/66 02/06/24 08:00 Pulse Ox 95 02/06/24 08:00 FiO2 Intake & Output 02/05/24 02/06/24 02/06/24 18:59 06:59 18:59 Output Total 0 Balance 0 Weight 62.73 kg 63.4 kg Output: Gastric Drainage 0 Urine 0 Stool 0 Emesis 0 Oral Regurgitation 0 Other 0 Other: Voiding Method External Catheter # Voids 0 # Bowel Movements 0 - Labs CBC & Chem 7: 02/06/24 03:38 02/06/24 08:49 Labs: Abnormal Lab Results - Last 24 Hours (Table) 02/06/24 02/06/24 02/06/24 Range/Units 03:38 03:46 08:49 RBC 3.26 L (3.80-5.40) m/uL Hgb 11.0 L (11.4-16.0) gm/dL Hct 31.7 L (34.0-46.0) % Sodium 119 L* 120 L (137-145) mmol/L Chloride 85 L (98-107) mmol/L BUN 18 H (7-17) mg/dL AST 119 H (14-36) U/L Total Protein 5.4 L (6.3-8.2) g/dL Albumin 3.1 L (3.5-5.0) g/dL Assessment and Plan Plan: Assessment: 1. Hyponatremia secondary to SIADH. Euvolemic. No improvement with normal saline. Sodium level 120 this morning. 2. Systolic CHF with ejection fraction of 45 to 50%. Compensated. 3. Coronary artery disease with stenting. Plan: Maintain fluid restriction. Increase frequency of sodium chloride tabs to 3 times daily. Encourage oral intake, particularly protein. Stop lisinopril as blood pressure is on the lower side. Follow-up urine studies. Check TSH, PTH related peptide and cortisol level. Check sodium level this afternoon. Advised to follow-up with her primary care physician for maintenance screenings.
--- NOTE | 2024-02-06 16:12 | P.PN ---
Subjective Progress Note Date: 02/06/24 Patient was seen for a follow-up. Patient's friends were also present. They mentioned that for last couple months patient has been having very significant weakness of the legs, could not move her legs. Now the legs are getting better. She also has paresthesias with pins and needle sensation in both hands. She has suffered from falls as well. Patient does have some neck pain but denies any significant pain. Patient states that she used to feel as if her body is someone's else. 2D echo revealed technically difficult study. Mildly impaired left ventricular systolic function with segmental wall motion abnormality. Mild MR. Objective - Vital Signs Vital signs: Vital Signs Temp 98.1 F 02/06/24 12:00 Pulse 79 02/06/24 12:00 Resp 16 02/06/24 12:00 BP 99/69 02/06/24 12:00 Pulse Ox 97 02/06/24 12:00 FiO2 Intake & Output 02/05/24 02/06/24 02/06/24 18:59 06:59 18:59 Output Total 550 Balance -550 Weight 62.73 kg 63.4 kg Output: Gastric Drainage 0 Urine 450 Stool 0 Emesis 100 Oral Regurgitation 0 Other 0 Other: Voiding Method External Catheter External Catheter # Voids 0 # Bowel Movements 0 - Exam Mental status, speech and language functions are normal. Reflexes are 1-1+ in both upper extremities at biceps and brachioradialis, knees are 2, ankles 1 and plantars are possible upgoing bilaterally. - Labs CBC & Chem 7: 02/06/24 03:38 02/06/24 14:13 Labs: Abnormal Lab Results - Last 24 Hours (Table) 02/06/24 02/06/24 02/06/24 Range/Units 03:38 03:46 08:49 RBC 3.26 L (3.80-5.40) m/uL Hgb 11.0 L (11.4-16.0) gm/dL Hct 31.7 L (34.0-46.0) % Sodium 119 L* 120 L (137-145) mmol/L Chloride 85 L (98-107) mmol/L BUN 18 H (7-17) mg/dL AST 119 H (14-36) U/L Total Protein 5.4 L (6.3-8.2) g/dL Albumin 3.1 L (3.5-5.0) g/dL TSH (0.465-4.680) mIU/L 02/06/24 02/06/24 Range/Units 14:13 14:13 RBC (3.80-5.40) m/uL Hgb (11.4-16.0) gm/dL Hct (34.0-46.0) % Sodium 120 L (137-145) mmol/L Chloride (98-107) mmol/L BUN (7-17) mg/dL AST (14-36) U/L Total Protein (6.3-8.2) g/dL Albumin (3.5-5.0) g/dL TSH 5.140 H (0.465-4.680) mIU/L Assessment and Plan Assessment: * Gait imbalance with tendency to fall. Rule out B12, folate deficiency. Rule out spinal stenosis. * Hyponatremia, hypokalemia * History of Radha Ricardo syndrome in 1992, in remission. Patient has preserved reflexes, therefore doubt recurrence of GBS. * Osteoarthritis, lupus, history of bilateral hip replacement * Hypertension * Coronary artery disease Plan: * Check B12, folate, ESR, TITO. TSH 5.14. IM to address. * Treatment of hyponatremia as per IM and nephrology. * Recommend walker while ambulation. * MRI of the cervical spine, rule out spinal stenosis. * Dr. Urbano Holman to resume neurology service from Wednesday morning. * Continue PT/OT.
[2024-02-06 16:53] LABS: T4, Free (Free Thyroxine) 1.49 ng/dL (0.78-2.19)
[2024-02-06] MEDS: FUROSEMIDE 10 MG/ML 2 ML VIAL IV ONE (19:48)
[2024-02-06] MEDS: HEPARIN SODIUM,PORCINE 5,000 UNIT/ML 1 ML VIAL SQ SCH (21:28)
[2024-02-06] MEDS: CYCLOBENZAPRINE 5 MG TAB PO SCH (21:28)
[2024-02-06] MEDS: GABAPENTIN 300 MG CAP PO SCH (21:28)
[2024-02-06] MEDS: ONDANSETRON 4 MG/2 ML VIAL IVP PRN (21:30)
[2024-02-07 08:59] LABS: African American GFR (CKD) >90 (>60 ml/min/1.73 sqM); Anion Gap 5 mmol/L; Blood Urea Nitrogen 13 mg/dL (7-17); Calcium 8.9 mg/dL (8.4-10.2); Carbon Dioxide 29 mmol/L (22-30); Chloride 86 mmol/L (98-107); Glucose 91 mg/dL (74-99); Magnesium 1.7 mg/dL (1.6-2.3); Non-African American GFR(CKD) >90 (>60 ml/min/1.73 sqM); Potassium 3.7 mmol/L (3.5-5.1); Sodium 120 mmol/L (137-145)
--- NOTE | 2024-02-07 10:24 | P.PN ---
Subjective Patient is seen in follow-up for hyponatremia. Sodium level stable at 120 this morning. Oral intake fair. No active complaints. Vital signs are stable. General: No acute distress. HEENT: Head exam is unremarkable. LUNGS: No audible rhonchi or wheezes. HEART: Rate and Rhythm are regular. ABDOMEN: Nontender. EXTREMITITES: No edema. Objective - Vital Signs Vital signs: Vital Signs Temp 98.4 F 02/07/24 08:00 Pulse 87 02/07/24 08:00 Resp 18 02/07/24 08:00 BP 112/72 02/07/24 08:00 Pulse Ox 96 02/07/24 09:44 FiO2 Intake & Output 02/06/24 02/07/24 02/07/24 18:59 06:59 18:59 Intake Total 342 222 Output Total 550 200 Balance -208 -200 222 Weight 67.5 kg Intake: Oral 342 222 Output: Gastric Drainage 0 Urine 450 200 Stool 0 Emesis 100 Oral Regurgitation 0 Other 0 Other: Voiding Method External Catheter External Catheter # Voids 0 # Bowel Movements 0 - Labs CBC & Chem 7: 02/06/24 03:38 02/07/24 07:17 Labs: Abnormal Lab Results - Last 24 Hours (Table) 02/06/24 02/06/24 02/07/24 Range/Units 14:13 14:13 00:31 Sodium 120 L (137-145) mmol/L Chloride (98-107) mmol/L TSH 5.140 H (0.465-4.680) mIU/L Ur Random Sodium 21 L (40-220) mmol/L 02/07/24 Range/Units 07:17 Sodium 120 L (137-145) mmol/L Chloride 86 L (98-107) mmol/L TSH (0.465-4.680) mIU/L Ur Random Sodium (40-220) mmol/L Assessment and Plan Plan: Assessment: 1. Hyponatremia secondary to SIADH. Euvolemic. No improvement with normal saline. Has been receiving salt tabs and also received a dose of IV Lasix last night with no improvement in sodium level. Urine sodium 21. TSH slightly high at 5.1. Cortisol level 9.8. Sodium level stable at 120 this morning. 2. Systolic CHF with ejection fraction of 45 to 50%. Compensated. 3. Coronary artery disease with stenting. Plan: Maintain fluid restriction. Stop salt tabs. Samsca 7.5 mg once today. Encourage oral intake, particularly protein. Follow-up urine studies. Follow-up PTH related peptide. Check sodium level this afternoon. Advised to follow-up with her primary care physician for maintenance screenings.
[2024-02-07] MEDS: CLOPIDOGREL 75 MG TAB ONE ×2 (11:35→11:36)
[2024-02-07] MEDS: FUROSEMIDE 10 MG/ML 2 ML VIAL ONE (11:35)
[2024-02-07] MEDS: ASPIRIN 81 MG ONE ×2 (11:35→11:36)
[2024-02-07] MEDS: PANTOPRAZOLE 40 MG TABLET PO ONE ×2 (11:35→11:36)
[2024-02-07] MEDS: METOPROLOL TARTRATE 25 MG TAB ONE ×4 (11:35→11:37)
[2024-02-07] MEDS: ONDANSETRON 4 MG/2 ML VIAL ONE ×2 (11:35→11:37)
[2024-02-07] MEDS: POTASSIUM CHLORIDE ER 20 MEQ TAB.ER PO ONE (11:37)
--- NOTE | 2024-02-07 11:37 | P.PN ---
Subjective Progress Note Date: 02/07/24 Patient is a pleasant 69 years old female with past medical history of multiple medical problems including hypertension, hyperlipidemia, fibromyalgia, coronary artery disease, rheumatoid arthritis and thyroid disease, Guillain-Ricardo syndrome. Presents because of hyponatremia and her sodium was as low as 115 upon admission, he has been evaluated and treated accordingly with slow correction of her sodium. Yesterday sodium went down from 118 down to 117. This morning sodium is 119 then 120. Patient today overall doing fine, she has no symptoms. Lying in bed most of the time and pleasant relaxed. No headache or confusion. Vital signs stable. Afebrile CBC is unremarkable except for hemoglobin of 11. Rest of BMP is unremarkable except of sodium 120. Liver enzymes not elevated. 02/06. Patient seen and examined. States she feels much better. Sodium levels improved to 120 REVIEW OF SYSTEMS: CONSTITUTIONAL: No fever, no malaise,. CARDIOVASCULAR: No chest pain, no palpitations, no syncope. PULMONARY: No shortness of breath, no cough, GASTROINTESTINAL: No diarrhea, no nausea, no vomiting, no abdominal pain. NEUROLOGICAL: No headaches, no weakness, PHYSICAL EXAMINATION: GENERAL: The patient is alert and oriented x3, not in any acute distress. Well developed, well nourished. HEENT: Pupils are round and equally reacting to light. EOMI. No scleral icterus. No conjunctival pallor. Normocephalic, atraumatic. No pharyngeal erythema. No thyromegaly. CARDIOVASCULAR: S1 and S2 present. No murmurs, rubs, or gallops. PULMONARY: Chest is clear to auscultation, no wheezing or crackles. ABDOMEN: Soft, nontender, nondistended, normoactive bowel sounds. No palpable organomegaly. MUSCULOSKELETAL: No joint swelling or deformity. EXTREMITIES: No cyanosis, clubbing, or pedal edema. NEUROLOGICAL: Gross neurological examination did not reveal any focal deficits. SKIN: No rashes. Assessment and plan Hyponatremia Falls Cardiomyopathy with ejection fraction of 30% Coronary artery disease status post previous stents to LAD Hypertension Hyperlipidemia Hypothyroidism History of fibromyalgia History of rheumatoid arthritis History of Guillain-Ricardo syndrome Monitor vital signs Monitor CBC Monitor CMP Continue telemetry monitoring Continue fluid restriction Serial electrolytes. Tolvaptan ordered Nephrology following PT and OT following Labs and medication were reviewed.. Continue same treatment. Continue with symptomatic treatment. Resume home medication. Monitor labs and vitals. DVT and GI prophylaxis. Further recommendations as per clinical course of the patient Dictation was produced using [employer] dictation software. please excuse any gramm atical, word or spelling errors. Objective - Vital Signs Vital signs: Vital Signs Temp 98.4 F 02/07/24 08:00 Pulse 87 02/07/24 08:00 Resp 18 02/07/24 08:00 BP 112/72 02/07/24 08:00 Pulse Ox 96 02/07/24 09:44 FiO2 Intake & Output 02/06/24 02/07/24 02/07/24 18:59 06:59 18:59 Intake Total 342 222 Output Total 550 200 Balance -208 -200 222 Weight 67.5 kg Intake: Oral 342 222 Output: Gastric Drainage 0 Urine 450 200 Stool 0 Emesis 100 Oral Regurgitation 0 Other 0 Other: Voiding Method External Catheter External Catheter # Voids 0 # Bowel Movements 0 - Labs CBC & Chem 7: 02/06/24 03:38 02/07/24 07:17 Labs: Abnormal Lab Results - Last 24 Hours (Table) 02/06/24 02/06/24 02/07/24 Range/Units 14:13 14:13 00:31 Sodium 120 L (137-145) mmol/L Chloride (98-107) mmol/L Osmolality 253 L (275-295) mOsm/kg TSH 5.140 H (0.465-4.680) mIU/L Urine Osmolality 249 L (400-1100) mOsm/kg Ur Random Sodium (40-220) mmol/L 02/07/24 02/07/24 Range/Units 00:31 07:17 Sodium 120 L (137-145) mmol/L Chloride 86 L (98-107) mmol/L Osmolality (275-295) mOsm/kg TSH (0.465-4.680) mIU/L Urine Osmolality (400-1100) mOsm/kg Ur Random Sodium 21 L (40-220) mmol/L
[2024-02-07] MEDS: TOLVAPTAN 15 MG TABLET PO ONE (12:06)
--- NOTE | 2024-02-07 12:35 | MR ---
EXAMINATION TYPE: MR cervical spine wo con DATE OF EXAM: 02/07/2024 12:06 PM CLINICAL INDICATION: Female, 69 years old with history of Paresthesias in all 4 extremities, leg weak ness COMPARISON: CT from 10/20/2022 TECHNIQUE: Multi planar, multi sequence imaging was performed utilizing: T1-weighted, T2-weighted, an d turbo inversion recovery imaging of the cervical spine. IV Contrast: cc (none if empty) FINDINGS: Alignment: The cervical vertebral bodies have preserved heights. Alignment is within normal limits gi nelson patient positioning. Bones: .No abnormal bone marrow edema on inversion recovery sequences. Increased FLAIR signal within the C7 vertebral body. Associated high T1 high T2 signal. Possibly representing fatty bone marrow giv en similar findings on other sequences in the lower spine. Compression deformity of T3 and T5 without associated bony edema. There is 1525% height loss respectively at these levels. Cord: The spinal cord is unremarkable with regards to their signal intensity and morphology. Discs: Intervertebral disc signal is maintained. C2-C3: No significant disc pathology. The spinal canal is patent. Bilateral facet and uncovertebral joint arthropathy are present with mild left neural foraminal stenosis. The right neural foramen is p atent. C3-C4: No significant disc pathology. The spinal canal is patent. Bilateral facet and uncovertebral joint arthropathy are present with mild bilateral neural foraminal stenosis. C4-C5: No significant disc pathology. The spinal canal is patent. Bilateral facet and uncovertebral joint arthropathy are present with mild bilateral neural foraminal stenosis. C5-C6: No significant disc pathology. The spinal canal is patent. Bilateral facet and uncovertebral joint arthropathy are present with mild bilateral neural foraminal stenosis. C6-C7: No significant disc pathology. The spinal canal is patent. No neural foraminal stenosis. C7-T1: No significant disc pathology. The spinal canal is patent. No neural foraminal stenosis. Other: None. IMPRESSION: 1. No evidence for disc herniation or significant spinal canal stenosis. 2. Multilevel disc degeneration with associated osteoarthritic changes. 3. Chronic T3 and T5 compression deformities with 50% and 25% height loss respectively.
[2024-02-07] MEDS: SODIUM CHLORIDE TAB 1 GM TAB PO ONE (22:08)
[2024-02-08 09:30] LABS: Basophils # (A) 0.1 k/uL (0-0.2); Basophils % (A) 1 %; Eosinophils # (A) 0.5 k/uL (0-0.7); Eosinophils % (A) 9 %; HCT 31.6 % (34.0-46.0); HGB 10.9 gm/dL (11.4-16.0); Lymphocytes # (A) 1.2 k/uL (1.0-4.8); Lymphocytes % (A) 22 %; MCH 34.2 pg (25.0-35.0); MCHC 34.5 g/dL (31.0-37.0); MCV 99.1 fL (80.0-100.0); Mean Platelet Volume 7.2; Monocytes # (A) 0.4 k/uL (0-1.0); Monocytes % (A) 7 %; Neutrophils # (A) 3.4 k/uL (1.3-7.7); Neutrophils % (A) 59 %; Platelet Count 281 k/uL (150-450); RBC 3.19 m/uL (3.80-5.40); RDW 14.7 % (11.5-15.5); WBC 5.7 k/uL (3.8-10.6)
[2024-02-08 10:08] LABS: African American GFR (CKD) >90 (>60 ml/min/1.73 sqM); Anion Gap 7 mmol/L; Blood Urea Nitrogen 13 mg/dL (7-17); Calcium 9.4 mg/dL (8.4-10.2); Carbon Dioxide 28 mmol/L (22-30); Chloride 93 mmol/L (98-107); Glucose 101 mg/dL (74-99); Magnesium 1.9 mg/dL (1.6-2.3); Non-African American GFR(CKD) >90 (>60 ml/min/1.73 sqM); Potassium 4.2 mmol/L (3.5-5.1); Sodium 128 mmol/L (137-145)
--- NOTE | 2024-02-08 10:53 | P.PN ---
Subjective Patient is seen in follow-up for hyponatremia. Sodium level stable at 128 this morning. Oral intake fair. No active complaints. Vital signs are stable. General: No acute distress. HEENT: Head exam is unremarkable. LUNGS: No audible rhonchi or wheezes. HEART: Rate and Rhythm are regular. ABDOMEN: Nontender. EXTREMITITES: No edema. Objective - Vital Signs Vital signs: Vital Signs Temp 97.9 F 02/08/24 08:19 Pulse 88 02/08/24 08:19 Resp 18 02/08/24 08:19 BP 104/67 02/08/24 08:19 Pulse Ox 95 02/08/24 08:19 FiO2 Intake & Output 02/07/24 02/08/24 02/08/24 18:59 06:59 18:59 Intake Total 222 10 10 Output Total 0 900 0 Balance 222 -890 10 Weight 66.5 kg Intake: IV 10 10 Invasive Line 1 10 10 Oral 222 Output: Urine 900 Stool 0 0 Other: Voiding Method External Catheter External Catheter - Labs CBC & Chem 7: 02/08/24 08:42 02/08/24 08:42 Labs: Abnormal Lab Results - Last 24 Hours (Table) 02/06/24 02/07/24 02/07/24 Range/Units 14:13 00:31 15:54 RBC (3.80-5.40) m/uL Hgb (11.4-16.0) gm/dL Hct (34.0-46.0) % Sodium 121 L (137-145) mmol/L Chloride (98-107) mmol/L Glucose (74-99) mg/dL Osmolality 253 L (275-295) mOsm/kg Urine Osmolality 249 L (400-1100) mOsm/kg 02/08/24 02/08/24 Range/Units 08:42 08:42 RBC 3.19 L (3.80-5.40) m/uL Hgb 10.9 L (11.4-16.0) gm/dL Hct 31.6 L (34.0-46.0) % Sodium 128 L (137-145) mmol/L Chloride 93 L (98-107) mmol/L Glucose 101 H (74-99) mg/dL Osmolality (275-295) mOsm/kg Urine Osmolality (400-1100) mOsm/kg Assessment and Plan Plan: Assessment: 1. Hyponatremia secondary to SIADH. Euvolemic. No improvement with normal saline. Has been receiving salt tabs and also received a dose of IV Lasix with no improvement in sodium level. Urine sodium 21. Urine osmolality 249. TSH slightly high at 5.1. Cortisol level 9.8. Sodium level stable at 128 this morning. Status post [facility] given February 07, 2024. 2. Systolic CHF with ejection fraction of 45 to 50%. Compensated. 3. Coronary artery disease with stenting. Plan: Maintain fluid restriction. Add urea tabs - to be started tonight. Encourage oral intake, particularly protein. Maintain ensure. Follow-up PTH related peptide. Advised to follow-up with her primary care physician for maintenance screenings.
[2024-02-08] MEDS: SODIUM CHLORIDE TAB 1 GM TAB PO SCH (11:01)
[2024-02-08] MEDS: CYANOCOBALAMIN 500 MCG TAB PO SCH (11:40)
--- NOTE | 2024-02-08 13:13 | P.PN ---
Subjective Progress Note Date: 02/08/24 Patient is a pleasant 69 years old female with past medical history of multiple medical problems including hypertension, hyperlipidemia, fibromyalgia, coronary artery disease, rheumatoid arthritis and thyroid disease, Guillain-Ricardo syndrome. Presents because of hyponatremia and her sodium was as low as 115 upon admission, he has been evaluated and treated accordingly with slow correction of her sodium. Yesterday sodium went down from 118 down to 117. This morning sodium is 119 then 120. Patient today overall doing fine, she has no symptoms. Lying in bed most of the time and pleasant relaxed. No headache or confusion. Vital signs stable. Afebrile CBC is unremarkable except for hemoglobin of 11. Rest of BMP is unremarkable except of sodium 120. Liver enzymes not elevated. 02/06. Patient seen and examined. States she feels much better. Sodium levels improved to 120 /27. Patient seen and examined. Sodium level this morning is 128. Continues to be on fluid restriction per nephrology. Patient not happy about fluid restriction REVIEW OF SYSTEMS: CONSTITUTIONAL: No fever, no malaise,. CARDIOVASCULAR: No chest pain, no palpitations, no syncope. PULMONARY: No shortness of breath, no cough, GASTROINTESTINAL: No diarrhea, no nausea, no vomiting, no abdominal pain. NEUROLOGICAL: No headaches, no weakness, PHYSICAL EXAMINATION: GENERAL: The patient is alert and oriented x3, not in any acute distress. Well developed, well nourished. HEENT: Pupils are round and equally reacting to light. EOMI. No scleral icterus. No conjunctival pallor. Normocephalic, atraumatic. No pharyngeal erythema. No thyromegaly. CARDIOVASCULAR: S1 and S2 present. No murmurs, rubs, or gallops. PULMONARY: Chest is clear to auscultation, no wheezing or crackles. ABDOMEN: Soft, nontender, nondistended, normoactive bowel sounds. No palpable organomegaly. MUSCULOSKELETAL: No joint swelling or deformity. EXTREMITIES: No cyanosis, clubbing, or pedal edema. NEUROLOGICAL: Gross neurological examination did not reveal any focal deficits. SKIN: No rashes. Assessment and plan Hyponatremia Falls Cardiomyopathy with ejection fraction of 30% Coronary artery disease status post previous stents to LAD Hypertension Hyperlipidemia Hypothyroidism History of fibromyalgia History of rheumatoid arthritis History of Guillain-Ricardo syndrome Monitor vital signs Monitor CBC Monitor CMP Continue telemetry monitoring Continue fluid restriction Serial electrolytes. Tolvaptan ordered on 02/06 Continue salt tablets Nephrology following PT and OT following Labs and medication were reviewed.. Continue same treatment. Continue with symptomatic treatment. Resume home medication. Monitor labs and vitals. DVT and GI prophylaxis. Further recommendations as per clinical course of the patient Dictation was produced using [employer] dictation software. please excuse any grammatical, word or spelling errors. Objective - Vital Signs Vital signs: Vital Signs Temp 97.9 F 02/08/24 08:19 Pulse 88 02/08/24 08:19 Resp 18 02/08/24 08:19 BP 104/67 02/08/24 08:19 Pulse Ox 95 02/08/24 08:19 FiO2 Intake & Output 02/07/24 02/08/24 02/08/24 18:59 06:59 18:59 Intake Total 222 10 10 Output Total 0 900 0 Balance 222 -890 10 Weight 66.5 kg Intake: IV 10 10 Invasive Line 1 10 10 Oral 222 Output: Urine 900 Stool 0 0 Other: Voiding Method External Catheter External Catheter - Labs CBC & Chem 7: 02/08/24 08:42 02/08/24 08:42 Labs: Abnormal Lab Results - Last 24 Hours (Table) 02/06/24 02/07/24 02/07/24 Range/Units 14:13 00:31 15:54 RBC (3.80-5.40) m/uL Hgb (11.4-16.0) gm/dL Hct (34.0-46.0) % Sodium 121 L (137-145) mmol/L Osmolality 253 L (275-295) mOsm/kg Urine Osmolality 249 L (400-1100) mOsm/kg 02/08/24 Range/Units 08:42 RBC 3.19 L (3.80-5.40) m/uL Hgb 10.9 L (11.4-16.0) gm/dL Hct 31.6 L (34.0-46.0) % Sodium (137-145) mmol/L Osmolality (275-295) mOsm/kg Urine Osmolality (400-1100) mOsm/kg
[2024-02-08] MEDS: UREA 15 GM PO SCH (21:13)
[2024-02-09 10:16] LABS: African American GFR (CKD) >90 (>60 ml/min/1.73 sqM); Anion Gap 8 mmol/L; Blood Urea Nitrogen 27 mg/dL (7-17); Calcium 9.8 mg/dL (8.4-10.2); Carbon Dioxide 27 mmol/L (22-30); Chloride 95 mmol/L (98-107); Glucose 95 mg/dL (74-99); Non-African American GFR(CKD) >90 (>60 ml/min/1.73 sqM); Potassium 4.4 mmol/L (3.5-5.1); Sodium 130 mmol/L (137-145)
--- NOTE | 2024-02-09 10:22 | P.PN ---
Subjective Patient is seen in follow-up for hyponatremia. Sodium level 130 this morning. Oral intake fair. No active complaints. Vital signs are stable. General: No acute distress. HEENT: Head exam is unremarkable. LUNGS: No audible rhonchi or wheezes. HEART: Rate and Rhythm are regular. ABDOMEN: Nontender. EXTREMITITES: No edema. Objective - Vital Signs Vital signs: Vital Signs Temp 97.6 F 02/09/24 07:35 Pulse 77 02/09/24 07:35 Resp 16 02/09/24 07:35 BP 112/77 02/09/24 07:35 Pulse Ox 98 02/09/24 07:35 FiO2 Intake & Output 02/08/24 02/09/24 02/09/24 18:59 06:59 18:59 Intake Total 500 10 322 Output Total 550 450 Balance -50 -440 322 Weight 68 kg Intake: IV 20 10 Invasive Line 1 20 10 Oral 480 322 Output: Urine 550 450 Stool 0 Other: Voiding Method External Catheter External Catheter External Catheter - Labs CBC & Chem 7: 02/08/24 08:42 02/09/24 08:54 Labs: Abnormal Lab Results - Last 24 Hours (Table) 02/06/24 02/09/24 Range/Units 14:13 08:54 Sodium 130 L (137-145) mmol/L Chloride 95 L (98-107) mmol/L BUN 27 H (7-17) mg/dL Folate 3.80 L (4.40-31.00) ng/mL Assessment and Plan Plan: Assessment: 1. Hyponatremia secondary to SIADH. Euvolemic. No improvement with normal saline. Has been receiving salt tabs and also received a dose of IV Lasix with no improvement in sodium level. Urine sodium 21. Urine osmolality 249. TSH slightly high at 5.1. Cortisol level 9.8. Sodium level stable at 130 this morning. Status post [facility] given February 07, 2024. 2. Systolic CHF with ejection fraction of 45 to 50%. Compensated. 3. Coronary artery disease with stenting. Plan: Maintain fluid restriction. Maintain urea tabs. Encourage oral intake, particularly protein. Maintain ensure. Follow-up PTH related peptide. Advised to follow-up with her primary care physician for maintenance screenings. Repeat BMP and magnesium level 2 to 3 days postdischarge. Follow-up outpatient in 1 week.
--- NOTE | 2024-02-09 12:24 | P.PN ---
Subjective Progress Note Date: 02/09/24 Patient is a pleasant 69 years old female with past medical history of multiple medical problems including hypertension, hyperlipidemia, fibromyalgia, coronary artery disease, rheumatoid arthritis and thyroid disease, Guillain-Ricardo syndrome. Presents because of hyponatremia and her sodium was as low as 115 upon admission, he has been evaluated and treated accordingly with slow correction of her sodium. Yesterday sodium went down from 118 down to 117. This morning sodium is 119 then 120. Patient today overall doing fine, she has no symptoms. Lying in bed most of the time and pleasant relaxed. No headache or confusion. Vital signs stable. Afebrile CBC is unremarkable except for hemoglobin of 11. Rest of BMP is unremarkable except of sodium 120. Liver enzymes not elevated. 02/06. Patient seen and examined. States she feels much better. Sodium levels improved to 120 /27. Patient seen and examined. Sodium level this morning is 128. Continues to be on fluid restriction per nephrology. Patient not happy about fluid restriction 02/08. Patient seen and examined. Sodium level this morning is 130. Complaining of generalized weakness. REVIEW OF SYSTEMS: CONSTITUTIONAL: No fever, no malaise,. CARDIOVASCULAR: No chest pain, no palpitations, no syncope. PULMONARY: No shortness of breath, no cough, GASTROINTESTINAL: No diarrhea, no nausea, no vomiting, no abdominal pain. NEUROLOGICAL: No headaches, no weakness, PHYSICAL EXAMINATION: GENERAL: The patient is alert and oriented x3, not in any acute distress. Well developed, well nourished. HEENT: Pupils are round and equally reacting to light. EOMI. No scleral icterus. No conjunctival pallor. Normocephalic, atraumatic. No pharyngeal erythema. No thyromegaly. CARDIOVASCULAR: S1 and S2 present. No murmurs, rubs, or gallops. PULMONARY: Chest is clear to auscultation, no wheezing or crackles. ABDOMEN: Soft, nontender, nondistended, normoactive bowel sounds. No palpable organomegaly. MUSCULOSKELETAL: No joint swelling or deformity. EXTREMITIES: No cyanosis, clubbing, or pedal edema. NEUROLOGICAL: Gross neurological examination did not reveal any focal deficits. SKIN: No rashes. Assessment and plan Hyponatremia Falls Cardiomyopathy with ejection fraction of 30% Coronary artery disease status post previous stents to LAD Hypertension Hyperlipidemia Hypothyroidism History of fibromyalgia History of rheumatoid arthritis History of Guillain-Ricardo syndrome Monitor vital signs Monitor CBC Monitor CMP Continue telemetry monitoring Continue fluid restriction Serial electrolytes. Tolvaptan ordered on 02/06 Continue urea tablets Nephrology following PT and OT following Labs and medication were reviewed.. Continue same treatment. Continue with symptomatic treatment. Resume home medication. Monitor labs and vitals. DVT and GI prophylaxis. Further recommendations as per clinical course of the patient Dictation was produced using [employer] dictation software. please excuse any gra mmatical, word or spelling errors. Objective - Vital Signs Vital signs: Vital Signs Temp 97.6 F 02/09/24 07:35 Pulse 77 02/09/24 07:35 Resp 16 02/09/24 07:35 BP 112/77 02/09/24 07:35 Pulse Ox 98 02/09/24 07:35 FiO2 Intake & Output 02/08/24 02/09/24 02/09/24 18:59 06:59 18:59 Intake Total 500 10 Output Total 550 450 Balance -50 -440 Weight 68 kg Intake: IV 20 10 Invasive Line 1 20 10 Oral 480 Output: Urine 550 450 Stool 0 Other: Voiding Method External Catheter External Catheter External Catheter - Labs CBC & Chem 7: 02/08/24 08:42 02/09/24 08:54 Labs: Abnormal Lab Results - Last 24 Hours (Table) 02/06/24 02/08/24 02/08/24 Range/Units 14:13 08:42 08:42 RBC 3.19 L (3.80-5.40) m/uL Hgb 10.9 L (11.4-16.0) gm/dL Hct 31.6 L (34.0-46.0) % Sodium 128 L (137-145) mmol/L Chloride 93 L (98-107) mmol/L Glucose 101 H (74-99) mg/dL Folate 3.80 L (4.40-31.00) ng/mL
--- NOTE | 2024-02-09 17:44 | P.PN ---
Subjective Progress Note Date: 02/09/24 I am seeing the patient for the first time during this admission. Please refer to Dr. Cordova's note for further details. Stated that she was having unsteady gait with lower extremity weakness. Was found that the patient has hyponatremia which is trending up and ever since the sodium has been improving she feels she is having drastic improvement in her lower extremity. She denies of any lower back pain. Objective - Vital Signs Vital signs: Vital Signs Temp 97.7 F 02/09/24 15:47 Pulse 67 02/09/24 15:47 Resp 16 02/09/24 15:47 BP 101/62 02/09/24 15:47 Pulse Ox 99 02/09/24 15:47 FiO2 Intake & Output 02/08/24 02/09/24 02/09/24 18:59 06:59 18:59 Intake Total 500 10 554 Output Total 550 450 500 Balance -50 -440 54 Weight 68 kg Intake: IV 20 10 10 Invasive Line 1 20 10 10 Oral 480 544 Output: Urine 550 450 500 Stool 0 Other: Voiding Method External Catheter External Catheter External Catheter - Exam General: Lying in bed and is not in acute distress. Neuro: Patient is awake alert oriented to self place and time. Is following simple commands. No aphasia. Pupils are round equal reactive to light. Pupils are round 4 mm bilaterally. Visual bernabe are full to confrontation. Extraocular movement is intact no nystagmus. No facial weakness. No dysarthria Motor strength in the uppers are 5 out of 5. In the lowers proximally is 5 - knee extensions are 4-4 positive and ankles are about 5-25 bilaterally. Sensation is normal to touch throughout Reflexes is positive throughout except at the ankles is 1 positive - Labs CBC & Chem 7: 02/08/24 08:42 02/09/24 08:54 Labs: Abnormal Lab Results - Last 24 Hours (Table) 02/06/24 02/09/24 Range/Units 14:13 08:54 Sodium 130 L (137-145) mmol/L Chloride 95 L (98-107) mmol/L BUN 27 H (7-17) mg/dL Folate 3.80 L (4.40-31.00) ng/mL Assessment and Plan Assessment: * Gait imbalance with tendency to fall seems more due to significant hyponatremia and states now feels drastic improvement with improvement of her sodium. I agree with Dr. Cordova, patient has preserved reflexes, therefore doubt recurrence of GBS. * Significant hyponatremia and on 02/06/2024 it was 119 and currently at 130 * Folate deficiency 480 * reported hypokalemia--resolved * History of Radha Ricardo syndrome in 1992, in remission. 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 * Osteoarthritis, lupus, history of bilateral hip replacement * Hypertension * Coronary artery disease Plan: Regarding the folate deficiency of 3.80 started the patient on folic acid 1 mg daily ESR 15, serum vitamin B12 379 TSH 5.140 while free T4 is 1.49. TITO is negative For low normal vitamin B12 I started the patient on vitamin B12 1000 mg daily. MRI cervical is reported as no evidence for disc herniation or significant spinal canal stenosis. Multilevel disc degeneration with associated osteoarthritic changes. Chronic T3 and T5 compression deformities with 50% and 25 height loss respectively. Because of the patient's improvement in lower extremity symptoms since improvement in her hyponatremia recommend the patient to be evaluated as an outpatient orthopedic surgery team since MRI cervical shows chronic compression fracture and this is not acute. Also consider EMG with nerve conduction study as an outpatient of the lower extremities continues if continues to have weakness PT and OT are consulted Nephrology team is on board for the management of hyponatremia Will defer the rest of the medical management to primary and other specialist No further neurological workup. Will sign off. Please reconsult if needed. Time with Patient: Less than 30
[2024-02-09] MEDS: FOLIC ACID 1 MG TAB PO SCH (18:09)
[2024-02-09] MEDS: ACETAMINOPHEN TAB 325 MG TAB PO PRN (21:30)
[2024-02-10 05:15] LABS: African American GFR (CKD) >90 (>60 ml/min/1.73 sqM); Anion Gap 8 mmol/L; Blood Urea Nitrogen 46 mg/dL (7-17); Calcium 9.6 mg/dL (8.4-10.2); Carbon Dioxide 27 mmol/L (22-30); Chloride 94 mmol/L (98-107); Glucose 103 mg/dL (74-99); Non-African American GFR(CKD) >90 (>60 ml/min/1.73 sqM); Potassium 4.1 mmol/L (3.5-5.1); Sodium 129 mmol/L (137-145)
[2024-02-10 09:12] VITALS: BP 114/71; PULSE 83; RESP 18; TEMP 97.4
--- NOTE | 2024-02-10 10:06 | P.PN ---
Subjective Patient is seen in follow-up for hyponatremia. Sodium level stable at 129 this morning. Oral intake fair. No active complaints. Vital signs are stable. General: No acute distress. HEENT: Head exam is unremarkable. LUNGS: No audible rhonchi or wheezes. HEART: Rate and Rhythm are regular. ABDOMEN: Nontender. EXTREMITITES: No edema. Objective - Vital Signs Vital signs: Vital Signs Temp 97.4 F L 02/10/24 08:00 Pulse 83 02/10/24 08:00 Resp 18 02/10/24 08:00 BP 114/71 02/10/24 08:00 Pulse Ox 97 02/10/24 08:00 FiO2 Intake & Output 02/09/24 02/10/24 02/10/24 18:59 06:59 18:59 Intake Total 554 340 118 Output Total 500 Balance 54 340 118 Weight 66.8 kg Intake: IV 10 20 Invasive Line 1 10 20 Oral 544 320 118 Output: Urine 500 Other: Voiding Method External Catheter External Catheter - Labs CBC & Chem 7: 02/08/24 08:42 02/10/24 03:34 Labs: Abnormal Lab Results - Last 24 Hours (Table) 02/09/24 02/10/24 Range/Units 08:54 03:34 Sodium 130 L 129 L (137-145) mmol/L Chloride 95 L 94 L (98-107) mmol/L BUN 27 H 46 H (7-17) mg/dL Creatinine 0.49 L (0.52-1.04) mg/dL Glucose 103 H (74-99) mg/dL Assessment and Plan Plan: Assessment: 1. Hyponatremia secondary to SIADH. Euvolemic. No improvement with normal saline. Has been receiving salt tabs and also received a dose of IV Lasix with no improvement in sodium level. Urine sodium 21. Urine osmolality 249. TSH slightly high at 5.1. Cortisol level 9.8. Sodium level stable at 129 this morning. Status post [facility] given February 07, 2024. 2. Systolic CHF with ejection fraction of 45 to 50%. Compensated. 3. Coronary artery disease with stenting. Plan: Maintain fluid restriction. Maintain urea tabs. Encourage oral intake, particularly protein. Maintain ensure. Follow-up PTH related peptide. Advised to follow-up with her primary care physician for maintenance screenings. Repeat BMP and magnesium level 2 to 3 days postdischarge. Follow-up outpatient in 1 week.
--- NOTE | 2024-02-10 11:28 | P.DS ---
Providers Date of admission: 02/03/24 05:45 Expected date of discharge: 02/10/24 Attending physician: Robert Grant Consults: 02/03/24 05:45 Consult Physician Routine Consulting Provider: Aryan Castillo Consult Reason/Comments: elevated troponin Do you want consulting provider notified?: Already Contacted 02/03/24 16:35 Consult Physician Routine Consulting Provider: Melissa Rios Consult Reason/Comments: hyponatermia Do you want consulting provider notified?: Already Contacted 02/04/24 05:45 Consult Physician Routine Consulting Provider: Chapito Cordova Consult Reason/Comments: weakness Do you want consulting provider notified?: Already Contacted Primary care physician: Physician Nonstaff Hospital Course: Discharge diagnoses; Hyponatremia Falls Vitamin B12 deficiency Folic acid deficiency Cardiomyopathy with ejection fraction of 30% Coronary artery disease status post previous stents to LAD Hypertension Hyperlipidemia Hypothyroidism History of fibromyalgia History of rheumatoid arthritis History of Guillain-Ricardo syndrome Hospital course; Patient is a pleasant 69 years old female with past medical history of multiple medical problems including hypertension, hyperlipidemia, fibromyalgia, coronary artery disease, rheumatoid arthritis and thyroid disease, Guillain-Ricardo syndrome. Presents because of hyponatremia and her sodium was as low as 115 upon admission , he has been evaluated and treated accordingly with slow correction of her sodium. Yesterday sodium went down from 118 down to 117. This morning sodium is 119 then 120. Patient today overall doing fine, she has no symptoms. Lying in bed most of the time and pleasant relaxed. No headache or confusion. Vital signs stable. Afebrile CBC is unremarkable except for hemoglobin of 11. Rest of BMP is unremarkable except of sodium 120. Liver enzymes not elevated. 02/06. Patient seen and examined. States she feels much better. Sodium levels improved to 120 /27. Patient seen and examined. Sodium level this morning is 128. Continues to be on fluid restriction per nephrology. Patient not happy about fluid restriction 02/08. Patient seen and examined. Sodium level this morning is 130. Complaining of generalized weakness. 02/09. Patient seen and examined.Sodium level improved to 129. Nephrology recommends discharging patient on salt tablets 1 g daily. Patient was also seen by neurology during hospital stay, they recommended vitamin B12 and folic acid supplementation at discharge. PHYSICAL EXAMINATION: GENERAL: The patient is alert and oriented x3, not in any acute distress. Well developed, well nourished. HEENT: Pupils are round and equally reacting to light. EOMI. No scleral icterus. No conjunctival pallor. Normocephalic, atraumatic. No pharyngeal erythema. No thyromegaly. CARDIOVASCULAR: S1 and S2 present. No murmurs, rubs, or gallops. PULMONARY: Chest is clear to auscultation, no wheezing or crackles. ABDOMEN: Soft, nontender, nondistended, normoactive bowel sounds. No palpable organomegaly. MUSCULOSKELETAL: No joint swelling or deformity. EXTREMITIES: No cyanosis, clubbing, or pedal edema. NEUROLOGICAL: Gross neurological examination did not reveal any focal deficits. SKIN: No rashes. Dictation was produced using [employer] dictation software. please excuse any grammatical, word or spelling errors. Patient Condition at Discharge: Fair Plan - Discharge Summary New Discharge Prescriptions: New Folic Acid 1 mg PO DAILY 30 Days #30 tab Metoprolol Tartrate [Lopressor] 25 mg PO BID 30 Days #60 tab Sodium Chloride Tab 1 gm PO DAILY 30 Days #30 tablet Cyanocobalamin [Vitamin B-12] 1,000 mcg PO DAILY #30 tab Continue Gabapentin [Neurontin] 300 mg PO HS Furosemide [Lasix] 20 mg PO DAILY Atorvastatin Calcium [Lipitor] 80 mg PO HS HYDROcodone/APAP 7.5-325MG [[place] 7.5-325] 1 tab PO HS Cyclobenzaprine [Flexeril] 10 mg PO HS Clopidogrel [Plavix] 75 mg PO DAILY Levothyroxine Sodium [Synthroid] 150 mcg PO DAILY Omeprazole 20 mg PO BID Ibuprofen [Motrin] 800 mg PO Q12H PRN PRN Reason: Pain Discontinued Metoprolol Tartrate [Lopressor] 50 mg PO HS Metoprolol Tartrate [Lopressor] 100 mg PO DAILY Irbesartan 75 mg PO DAILY Discharge Medication List Atorvastatin Calcium [Lipitor] 80 mg PO HS 01/29/17 [History] Clopidogrel [Plavix] 75 mg PO DAILY 01/29/17 [History] Cyclobenzaprine [Flexeril] 10 mg PO HS 01/29/17 [History] Furosemide [Lasix] 20 mg PO DAILY 01/29/17 [History] Gabapentin [Neurontin] 300 mg PO HS 01/29/17 [History] HYDROcodone/APAP 7.5-325MG [[place] 7.5-325] 1 tab PO HS 01/29/17 [History] Ibuprofen [Motrin] 800 mg PO Q12H PRN 12/27/23 [History] Levothyroxine Sodium [Synthroid] 150 mcg PO DAILY 12/27/23 [History] Omeprazole 20 mg PO BID 12/27/23 [History] Cyanocobalamin [Vitamin B-12] 1,000 mcg PO DAILY #30 tab 02/10/24 [Rx] Folic Acid 1 mg PO DAILY 30 Days #30 tab 02/10/24 [Rx] Metoprolol Tartrate [Lopressor] 25 mg PO BID 30 Days #60 tab 02/10/24 [Rx] Sodium Chloride Tab 1 gm PO DAILY 30 Days #30 tablet 02/10/24 [Rx] Follow up Appointment(s)/Referral(s): Yemi Carter DO [STAFF PHYSICIAN] - 1 Week Discharge Disposition: HOME WITH HOME HEALTH SERVICES
[2024-02-10] MEDS: UREA 15 GM POWD.PACK PO SCH (12:28)
--- NOTE | 2024-02-29 10:10 | CA ---
Transthoracic Echo Report Name: Eliza Joshi Age: 69 Gender: F : 1955 Exam Date: 02/03/2024 14:47 Exam Location: [facility] Ht (in): 61 Wt (lb): 138 Ordering Physician: Attending/Referring Phys: Installation Coordinator Taylor Ingram RDCS Procedure CPT: Indications: Cardiac Hx: Technical Quality: Technically difficult study Contrast 1: Definity Total Dose (mL): 2 Contrast 2: Total Dose (mL): MEASUREMENTS (Male / Female) Normal Values 2D ECHO LV Diastolic Diameter PLAX 4.8 cm 4.2 - 5.9 / 3.9 - 5.3 cm LV Systolic Diameter PLAX 4.5 cm IVS Diastolic Thickness 1.3 cm 0.6 - 1.0 / 0.6 - 0.9 cm LVPW Diastolic Thickness 0.9 cm 0.6 - 1.0 / 0.6 - 0.9 cm LV Relative Wall Thickness 0.5 LVOT Diameter 1.9 cm LV Diastolic Volume MOD BP 134.0 cm??? 67 - 155 / 56 - 104 cm??? LV Systolic Volume MOD BP 68.5 cm??? - 58 / 19 - 49 cm??? LV Ejection Fraction MOD BP 48.9 % >= 55 % LV Cardiac Index MOD BP 2967.9 cm???/min???m??? LV Diastolic Volume MOD 4C 146.1 cm??? LV Systolic Volume MOD 4C 69.3 cm??? LV Ejection Fraction MOD 4C 52.6 % LV Cardiac Index MOD 4C 3474.8 cm???/min???m??? LV Diastolic Length 4C 9.2 cm LV Systolic Length 4C 7.3 cm LV Diastolic Volume MOD 2C 118.1 cm??? LV Systolic Volume MOD 2C 61.9 cm??? LV Ejection Fraction MOD 2C 47.6 % LV Cardiac Index MOD 2C 2544.2 cm???/min???m??? LV Diastolic Length 2C 8.8 cm LV Systolic Length 2C 8.1 cm LA Volume 82.0 cm??? 18 - 58 / 22 - 52 cm??? LA Volume Index 49.5 cm???/m??? 16 - 28 cm???/m??? Ascending Aorta Diameter 3.2 cm DOPPLER AV Peak Velocity 148.7 cm/s AV Peak Gradient 8.8 mmHg AV Mean Velocity 113.3 cm/s AV Mean Gradient 5.4 mmHg AV Velocity Time Integral 26.1 cm LVOT Peak Velocity 99.9 cm/s LVOT Peak Gradient 4.0 mmHg LVOT Velocity Time Integral 15.6 cm LVOT Stroke Volume 46.1 cm??? LVOT Stroke Volume Index 28.6 ml/m??? LVOT Cardiac Index 2088.0 cm???/min???m??? AV Area Cont Eq vti 1.8 cm??? AV Area Cont Eq pk 2.0 cm??? MV Area PHT 4.8 cm??? Mitral E Point Velocity 44.1 cm/s Mitral A Point Velocity 88.1 cm/s Mitral E to A Ratio 0.5 MV Deceleration Time 159.4 ms PV Peak Velocity 112.9 cm/s PV Peak Gradient 5.1 mmHg FINDINGS Left Ventricle Left ventricular ejection fraction is estimated at 45-50 %. Mildly increased septal wall thickness. Severely increased left ventricular diastolic volume. Moderately increased left ventricular systolic volume. Mildly decreased left ventricular ejection fraction with regional variability. Inferior apical hypokinesis Right Ventricle Right ventricle not well visualized. Unable to estimate the right ventricular systolic pressure. Right Atrium Right atrium not well visualized. Left Atrium Severely increased left atrial volume. Mildly increased left atrial area. Mitral Valve Mitral valve thickened. No evidence for mitral valve prolapse. No mitral stenosis. Mild mitral regurgitation.mitral annular calcification. Aortic Valve Trileaflet aortic valve. No aortic valve stenosis or regurgitation. Tricuspid Valve Structurally normal tricuspid valve. No tricuspid stenosis. No tricuspid regurgitation. Pulmonic Valve Pulmonic valve not well visualized. Pericardium No pericardial effusion. Aorta Normal size aortic root and proximal ascending aorta. CONCLUSIONS Technically difficult study. Definity ECHO contrast used for improved visualization of the endocardial borders (inadequate visualization of two or more contiguous segments). Mildly impaired left ventricular systolic function with segmental wall motion abnormality. Limited Doppler study with mild mitral regurgitation Previewed by: Dr. Darryl Em MD (Electronically Signed) Final Date: 04 February 2024 07:37
== END 2024-02-10 14:28 | disposition home health service (06) | DRG 644 ==
LOC: 3SCARD 05:45
PROVIDERS: ADMIT Hospitalist; ATTEND Hospitalist
DX: E22.2 Syndrome of inappropriate secretion of antidiuretic hormone (principal); I42.9 Cardiomyopathy, unspecified; I50.20 Unspecified systolic (congestive) heart failure; M48.54XA Collapsed vertebra, not elsewhere classified, thoracic region, initial encounter for fracture; E78.5 Hyperlipidemia, unspecified; E87.6 Hypokalemia; I11.0 Hypertensive heart disease with heart failure; I25.10 Atherosclerotic heart disease of native coronary artery without angina pectoris; M06.9 Rheumatoid arthritis, unspecified; R29.6 Repeated falls; M19.90 Unspecified osteoarthritis, unspecified site; M79.7 Fibromyalgia; E03.9 Hypothyroidism, unspecified; E53.8 Deficiency of other specified B group vitamins; Z96.643 Presence of artificial hip joint, bilateral; Z95.5 Presence of coronary angioplasty implant and graft
CPT/HCPCS: 71046; 72141; 80048; 80053; 82533; 82607; 82746; 83735; 83930; 83935; 84295; 84300; 84439; 84443; 85025; 85652; 86038; 93005; 93306; 94760; 96361; 99291

== ENCOUNTER → 2024-04-27 | Outpatient (CLI) | payer BC ==
--- NOTE | 2024-04-30 20:56 | MR ---
EXAMINATION TYPE: MR sow wo con DATE OF EXAM: 04/27/2024 4:43 PM COMPARISON: None. CLINICAL INDICATION: Female, 69 years old with history of R29.2 ABNORMAL REFLEX M48.061 SPINAL STENOS IS, LUM, Mid and lower back pain, BLE radiculopathy. TECHNIQUE: Multiplanar, multiecho imaging on a 3.0 Ana Cristina magnet is performed through the thoracic spi ne. IV Contrast: mL (None, if empty) FINDINGS: Spinal cord maintains normal signal through its visualized course. There is mild kyphosis in the upper thoracic spine. There is increased signal within the C7, T3, T5, T6. Acute edema may be present. As the patient have any history of neoplasm? There is a compression deformity of T3 T5 and to a mild degree T6. No homicide squad lieutenant ior wall displacement is evident. The study is compared to the CT of 10/30/2022. Compression deformiti es within the thoracic spine are stable over the interval Disc heights are preserved. Some midthoracic disc desiccation is present. T7-8: Minimal right paracentral disc bulge may be present with anterior thecal sac compression. No spinal canal stenosis is evident. No cord contact, cord compression, or spinal canal mass is ident ified. IMPRESSION: 1. Chronic compression deformities of T3, T5, T6 appear chronic and stable from 2022 2. Mild degenerative disc changes within the mid thoracic spine. 3. Thoracic kyphosis EXAMINATION TYPE: MR sow wo con DATE OF EXAM: 04/27/2024 4:43 PM COMPARISON: None. CLINICAL INDICATION: Female, 69 years old with history of R29.2 ABNORMAL REFLEX M48.061 SPINAL STENOS IS, LUM, Mid and lower back pain, BLE radiculopathy. TECHNIQUE: Multiplanar, multisequence images of the lumbar spine were acquired. IV Contrast: mL (None, if empty) FINDINGS: Cord ends at the L1-L2 level. L5-S1: Facet hypertrophy is present. No focal disc herniation or significant disc bulge is evident. N o spinal canal stenosis or neural foraminal stenosis. L4-L5: Small central protrusion is present with mild anterior thecal sac compression. Facet hypertrop hy with ligamentum flavum laxity is posterior lateral thecal sac compression. Spinal canal stenosis i s not present. L3-L4: Mild disc bulges anterior thecal sac compression. No AP spinal canal stenosis is present. Face t hypertrophy and ligamentum flavum laxity. Posterior lateral thecal sac compression. L2-L3: No focal disc herniation or significant disc bulge. No spinal canal stenosis. Neural foramen are patent. Set hypertrophy is present. L1-L2: Very minimal right paracentral disc bulge is present with anterior thecal sac compression. No spinal canal stenosis is present. Neural foramen are patent. Facets have mild hypertrophy without the cecile sac compression T12-L1: No focal disc herniation or significant disc bulge. No spinal canal stenosis. Neural forame n are patent. IMPRESSION: 1. Small central disc bulge with mild anterior thecal sac compression at L4-5. Facet hypertrophy and ligamentum flavum laxity is some posterior lateral thecal sac compression. Spinal canal stenosis su tessy is not present. 2. Facet degenerative changes through the lumbar spine of mild posterior lateral thecal sac compressi on. 3. No suspicious cord contact or nerve root impingement identified [facility], , 04/30/2024 8:54 PM
== END | disposition home or self-care (01) ==
LOC: RADMRIMAIN 15:34
PROVIDERS: ATTEND Psychiatry & Neurology Neurology
DX: M48.54XA Collapsed vertebra, not elsewhere classified, thoracic region, initial encounter for fracture (principal); M48.061 Spinal stenosis, lumbar region without neurogenic claudication; R29.2 Abnormal reflex; M47.814 Spondylosis without myelopathy or radiculopathy, thoracic region; M40.204 Unspecified kyphosis, thoracic region; M47.816 Spondylosis without myelopathy or radiculopathy, lumbar region
CPT/HCPCS: 72146; 72148

== ENCOUNTER → 2024-06-24 | Outpatient (CLI) | payer BC ==
--- NOTE | 2024-06-24 13:30 | MR ---
EXAMINATION TYPE: MR brain wo con DATE OF EXAM: 06/24/2024 1:03 PM COMPARISON: CT brain 12/27/2023 CLINICAL INDICATION: Female, 69 years old with history of I67.9 CEREBROVASCULAR DISEASE, UNSPECIFIED, Rt joanne extremity weakness, CVA VS. Demyelination TECHNIQUE: Multiplanar, multiecho imaging on a 3.0 Ana Cristina magnet is performed through the brain. Stud y is performed within 24 hours of arrival to the hospital.Multiplanar, multiecho imaging on a 3.0 Charley la magnet is performed through the knee. IV Contrast: mL (None, if empty) FINDINGS: The craniovertebral junction is normal. The pituitary is normal. Diffusion-weighted imaging is performed. No abnormal hyperintensity is present to suggest an acute i ntracranial infarct or acute ischemic change. No significant signal abnormality within the brain is evident. Couple of punctate subcortical and lev p white matter hyperintensities are present, likely on the basis of chronic white matter ischemic geovanna nge . Differential diagnosis could include migraine headaches, vasculitis. Multiple sclerosis and Lym e disease considered less likely. Ventricles and sulci are appropriate for the patient age. IMPRESSION: 1. Mild chronic appearing punctate hyperintensities within the deep white matter. [facility], , 06/24/2024 1:28 PM
== END | disposition home or self-care (01) ==
LOC: RADMRIMAIN 12:24
PROVIDERS: ATTEND Psychiatry & Neurology Neurology
DX: I67.9 Cerebrovascular disease, unspecified (principal); R90.82 White matter disease, unspecified; R53.1 Weakness
CPT/HCPCS: 70551